=== PATIENT | female | born 1970 | race Caucasian/White ===

== ENCOUNTER 2017-12-16 20:19 | Emergency (ER) | payer BC ==
[2017-12-16 20:34] VITALS: RESP 18; TEMP 98.3
[2017-12-16 21:36] LABS: Basophils % (A) 0 %; Eosinophils # (A) 0.4 k/uL (0-0.7); Eosinophils % (A) 4 %; HCT 41.1 % (34.0-46.0); HGB 13.6 gm/dL (11.4-16.0); Lymphocytes # (A) 1.4 k/uL (1.0-4.8); Lymphocytes % (A) 14 %; MCH 28.9 pg (25.0-35.0); MCHC 33.2 g/dL (31.0-37.0); Mean Platelet Volume 7.6; Monocytes # (A) 0.6 k/uL (0-1.0); Monocytes % (A) 6 %; Neutrophils # (A) 7.5 k/uL (1.3-7.7); Neutrophils % (A) 75 %; Platelet Count 276 k/uL (150-450); RBC 4.72 m/uL (3.80-5.40); RDW 13.3 % (11.5-15.5)
[2017-12-16 21:42] LABS: INR 1.1 (<1.2); Prothrombin Time 10.4 sec (9.0-12.0)
[2017-12-16 21:45] LABS: Albumin 3.6 g/dL (3.5-5.0); Calcium 9.2 mg/dL (8.4-10.2); Potassium 4.3 mmol/L (3.5-5.1); Total Bilirubin 0.2 mg/dL (0.2-1.3); Total Protein 6.3 g/dL (6.3-8.2)
--- NOTE | 2017-12-16 22:19 | XR ---
EXAMINATION TYPE: XR elbow complete LT DATE OF EXAM: 12/16/2017 COMPARISON: NONE HISTORY: Elbow pain TECHNIQUE: 3 views FINDINGS: I see no fracture nor dislocation. Joint spaces are normal. There is no sign of elbow joint effusion. IMPRESSION: Negative left elbow exam.
[2017-12-16 22:26] VITALS: BP 164/99; PULSE 87
--- NOTE | 2017-12-16 23:08 | ED ---
General Adult HPI - General Chief complaint: Extremity Problem,Nontraumatic Stated complaint: bruising on arm Time Seen by Provider: 12/16/17 21:04 Source: patient, family, RN notes reviewed Mode of arrival: ambulatory Limitations: no limitations - History of Present Illness Initial comments: Chief complaint and history of present illness a 39-year-old female here with her sister. The patient reports that several days ago she noticed a little discomfort to her left elbow and a small bruise. Over the next several days it' s become significantly larger. Minimal discomfort with range of motion. Patient otherwise does not feel ill. - Related Data Home Medications Medication Instructions Recorded Confirmed Ascorbic Acid [Vitamin C] 500 mg PO DAILY@1200 03/16/15 06/11/15 Calcitriol 0.25 mcg PO DAILY 03/16/15 06/11/15 Calcium Carbonate [Tums] 500 mg PO DAILY@119903/16/15 06/11/15 Ferrous Sulfate [Feosol] 325 mg PO DAILY 03/16/15 06/11/15 Magnesium 200 mg PO DAILY@119903/16/15 06/11/15 SUMAtriptan SUCCINATE [Imitrex] 50 mg PO BID PRN 03/16/15 06/11/15 Influenza Vaccine (3Yr+) [Fluarix 60 mcg IM .ONCE 06/11/15 06/11/15 Vaccine [id number]] Levothyroxine Sodium [Synthroid] 175 mcg PO DAILY 06/11/15 06/11/15 Previous Rx's Medication Instructions Recorded Acetaminophen-Codeine 300-30mg 1 tab PO Q4H PRN #30 tablet 06/11/15 [Tylenol #3] Ibuprofen [Motrin] 600 mg PO Q6HR PRN #30 tab 06/11/15 Allergies Allergy/AdvReac Type Severity Reaction Status Date / Time erythromycin base Allergy Rash/Hives Verified 12/16/17 20:33 Review of Systems ROS Statement: Those systems with pertinent positive or pertinent negative responses have been documented in the HPI. Review of systems no other complaints of the discomfort to her left elbow with a large area of ecchymosis. All systems are reviewed. Past medical problem significant for thyroid and cervical cancer. Also history of migraines. She takes Excedrin on occasion but not to excess. Also history of anemia. Her surgeries include thyroidectomy for thyroid cancer and partial hysterectomy. Family history significant for colon cancer and thyroid cancer. The patient is getting her colonoscopies as directed. She complains of ALLERGIES to erythromycin. Nonsmoker nonalcoholic drinker no exposure to chemicals. ROS Other: All systems not noted in ROS Statement are negative. Past Medical History Past Medical History: Cancer, Thyroid Disorder Additional Past Medical History / Comment(s): hx. anemia, hx. thyroid cancer, hx. migraine headaches History of Any Multi-Drug Resistant Organisms: None Reported Past Surgical History: No Surgical Hx Reported Additional Past Surgical History / Comment(s): D & C, thyroidectomy w/3 of parathyroid glands removed, D & C in March Past Anesthesia/Blood Transfusion Reactions: No Reported Reaction Past Psychological History: No Psychological Hx Reported Smoking Status: Former smoker Past Alcohol Use History: Rare Past Drug Use History: None Reported - Past Family History Mother Family Medical History: No Reported History General Exam - General Exam Comments Initial Comments: General: The patient is awake and alert, in no distress, and does not appear acutely ill. Here because of ecchymosis around her left elbow. Vital signs shows temperature 98.3 pulse 89 respiratory rate 18 pulse ox 97% room air blood pressure 141/65 Neck: The neck is supple, Cardiovascular: There is a regular rate and rhythm. No murmur, rub or gallop is appreciated. Respiratory: Lungs are clear to auscultation, respirations are non-labored, breath sounds are equal. No wheezes, stridor, rales, or rhonchi. Gastrointestinal: No complaints of abdominal pain, no nausea no vomiting no diarrhea. Back: No back pain, full range of motion. Musculoskeletal: Upper or lower extremities normal except for ecchymosis surrounding the mildly tender left elbow. Patient can't remember specifically injuring it or she may have bumped lightly. She is concerned about the amount of ecchymosis that spreads that area. Neurological: No focal or lateralizing findings Skin: Ecchymotic area left elbow. No signs of infection Limitations: no limitations Course Vital Signs 12/16/17 12/16/17 20:30 22:25 Temperature 98.3 F Pulse Rate 89 87 Respiratory 18 18 Rate Blood Pressure 141/65 164/99 O2 Sat by Pulse 97 97 Oximetry Medical Decision Making - Medical Decision Making Medical decision making; is a 47-year-old female complaint of large amount of ecchymosis around her left elbow minimally tender. She thinks she may have bumped it several days ago. Labs show white count of 10 hemoglobin 13 hematocrit 41. INR 1.1. Platelets 276,000. Potassium 4.3 BUN 26 creatinine 1.0 with a GFR 67. Glucose 105. X-ray of the left elbow was done and reviewed by radiologist his findings; are no fracture dislocation. Joint spaces are normal. There is no sign of elbow joint effusion. Impression negative left elbow. As read by Dr. Miller Patient be advised this time to apply cool compresses but still sore. Otherwise warm compresses to help the blood absorbed. Follow-up with family physician return emergency room as needed suggest that she use Tylenol for discomfort. - Lab Data Result diagrams: 12/16/17 21:28 12/16/17 21:28 Lab Results 12/16/17 12/16/17 12/16/17 Range/Units 21:28 21:28 21:28 WBC 10.0 (3.8-10.6) k/uL RBC 4.72 (3.80-5.40) m/uL Hgb 13.6 (11.4-16.0) gm/dL Hct 41.1 (34.0-46.0) % MCV 87.0 (80.0-100.0) fL MCH 28.9 (25.0-35.0) pg MCHC 33.2 (31.0-37.0) g/dL RDW 13.3 (11.5-15.5) % Plt Count 276 (150-450) k/uL Neutrophils % 75 % Lymphocytes % 14 % Monocytes % 6 % Eosinophils % 4 % Basophils % 0 % Neutrophils # 7.5 (1.3-7.7) k/uL Lymphocytes # 1.4 (1.0-4.8) k/uL Monocytes # 0.6 (0-1.0) k/uL Eosinophils # 0.4 (0-0.7) k/uL Basophils # 0.0 (0-0.2) k/uL PT 10.4 (9.0-12.0) sec INR 1.1 (<1.2) Sodium 144 (137-145) mmol/L Potassium 4.3 (3.5-5.1) mmol/L Chloride 106 (98-107) mmol/L Carbon Dioxide 28 (22-30) mmol/L Anion Gap 10 mmol/L BUN 26 H (7-17) mg/dL Creatinine 1.00 (0.52-1.04) mg/dL Est GFR (CKD-EPI)AfAm 78 (>60 ml/min/1.73 sqM) Est GFR (CKD-EPI)NonAf 67 (>60 ml/min/1.73 sqM) Glucose 105 H (74-99) mg/dL Calcium 9.2 (8.4-10.2) mg/dL Total Bilirubin 0.2 (0.2-1.3) mg/dL AST 12 L (14-36) U/L ALT 19 (9-52) U/L Alkaline Phosphatase 61 (38-126) U/L Total Protein 6.3 (6.3-8.2) g/dL Albumin 3.6 (3.5-5.0) g/dL Disposition Clinical Impression: Contusion of left elbow, Traumatic ecchymosis of elbow Disposition: HOME SELF-CARE Condition: Stable Instructions: Ecchymosis (ED) Additional Instructions: Apply ice if painful heat if not painful. Continue with flexing and extending. Tylenol for pain discomfort follow-up family physician Referrals: Susana Chin MD [Primary Care Provider] - 1-2 days Time of Disposition: 23:08
== END 2017-12-16 23:36 | disposition home or self-care (01) ==
LOC: EC 20:19
DX: S50.02XA Contusion of left elbow, initial encounter (principal); E07.9 Disorder of thyroid, unspecified; D64.9 Anemia, unspecified; Z85.850 Personal history of malignant neoplasm of thyroid; Z87.891 Personal history of nicotine dependence; Z79.899 Other long term (current) drug therapy; Z88.1 Allergy status to other antibiotic agents; X58.XXXA Exposure to other specified factors, initial encounter
CPT/HCPCS: 36415; 80053; 85025; 85610; 99283

== ENCOUNTER 2018-07-18 17:28 | Inpatient (IN) | payer BC ==
[2018-07-18] MEDS ORDERED: ASPIRIN 81 MG PO STA (18:16)
[2018-07-18] MEDS ORDERED: NITROGLYCERIN OINT 1 INCH/GM PACKET TOPICAL STA (18:16)
--- NOTE | 2018-07-18 18:19 | ED ---
General Adult HPI - General Chief complaint: Chest Pain Stated complaint: chest pain Time Seen by Provider: 07/18/18 17:30 Source: patient, RN notes reviewed Mode of arrival: ambulatory Limitations: no limitations - History of Present Illness Initial comments: This is a 48-year-old female who presents emergency Department complaining of chest pain starting at 3:30. Patient states the pain radiates to the left arm and it started when she was exerting herself walking today. Patient states she sat down and rested it improved she got up and started walking again and it came back. Patient states the pain continues this time is a pressure sensation of left side of her chest. Patient denies any difficulty breathing. Patient denies any diaphoretic episodes. Patient denied any nausea. Patient denies abdominal pain patient denies any recent fever chills but does states she has had a nonproductive cough recently. Patient denies any alcohol or drug use. Patient denies any leg edema or calf tenderness. Patient denies any abdominal pain patient denies any vomiting or diarrhea. She denies being lightheaded or having any near syncopal episode. He - Related Data Home Medications Medication Instructions Recorded Confirmed Calcitriol 0.25 mcg PO BID 03/16/15 07/18/18 Ferrous Sulfate [Feosol] 325 mg PO DAILY 03/16/15 07/18/18 Magnesium 200 mg PO DAILY 03/16/15 07/18/18 Levothyroxine Sodium [Synthroid] 175 mcg PO DAILY 06/11/15 07/18/18 Multivitamins, Thera [Multivitamin 1 tab PO DAILY 07/18/18 07/18/18 (formulary)] Allergies Allergy/AdvReac Type Severity Reaction Status Date / Time erythromycin base Allergy Rash/Hives Verified 07/18/18 18:24 Review of Systems ROS Statement: Those systems with pertinent positive or pertinent negative responses have been documented in the HPI. ROS Other: All systems not noted in ROS Statement are negative. Past Medical History Past Medical History: Cancer, Thyroid Disorder Additional Past Medical History / Comment(s): hx. anemia, hx. thyroid cancer, hx. migraine headaches History of Any Multi-Drug Resistant Organisms: None Reported Past Surgical History: No Surgical Hx Reported Additional Past Surgical History / Comment(s): D & C, thyroidectomy w/3 of parathyroid glands removed, D & C in March Past Anesthesia/Blood Transfusion Reactions: No Reported Reaction Past Psychological History: No Psychological Hx Reported Smoking Status: Former smoker Past Alcohol Use History: Rare Past Drug Use History: None Reported - Past Family History Mother Family Medical History: No Reported History General Exam - General Exam Comments Initial Comments: GENERAL: Patient is well-developed and well-nourished. Patient is nontoxic and well- hydrated and is in mild distress. ENT: Neck is soft and supple. No significant lymphadenopathy is noted. Oropharynx is clear. Moist mucous membranes. Neck has full range of motion without eliciting any pain. EYES: The sclera were anicteric and conjunctiva were pink and moist. Extraocular movements were intact and pupils were equal round and reactive to light. Eyelids were unremarkable. PULMONARY: Unlabored respirations. Good breath sounds bilaterally. No audible rales rhonchi or wheezing was noted. CARDIOVASCULAR: There is a regular rate and rhythm without any murmurs gallops or rubs. ABDOMEN: Soft and nontender with normal bowel sounds. No palpable organomegaly was noted. There is no palpable pulsatile mass. SKIN: Skin is clear with no lesions or rashes and otherwise unremarkable. NEUROLOGIC: Patient is alert and oriented x3. Cranial nerves II through XII are grossly intact. Motor and sensory are also intact. Normal speech, volume and content. Symmetrical smile. MUSCULOSKELETAL: Normal extremities with adequate strength and full range of motion. No lower extremity swelling or edema. No calf tenderness. LYMPHATICS: No significant lymphadenopathy is noted PSYCHIATRIC: Normal psychiatric evaluation. Normal interpersonal interactions appears functionally intact in deals appropriately with others. No signs of depression. No signs of anxiety. Limitations: no limitations Course Vital Signs 07/18/18 07/18/18 07/18/18 17:35 18:30 19:00 Temperature 97.6 F Pulse Rate 82 89 98 Respiratory 18 20 15 Rate Blood Pressure 175/127 167/104 152/106 O2 Sat by Pulse 100 98 98 Oximetry 07/18/18 19:30 Temperature Pulse Rate 92 Respiratory 12 Rate Blood Pressure 168/120 O2 Sat by Pulse 98 Oximetry Medical Decision Making - Medical Decision Making EKG shows a normal sinus rhythm at 80 bpm NC interval 158 QRSs 82 QT interval 380 QTC is 459 per patient's EKG shows no ST segment elevation or depression or T wave abnormalities are noted. Chest x-ray shows no acute abnormality. Patient continues to have some chest pain so I did another EKG and gave the patient sublingual nitroglycerin. Repeat EKG showed a normal sinus rhythm at 89 bpm NC interval 164 QRS is 82 QT interval 370 QTC is 459. Patient's EKG shows no ST segment elevation or depression. I started the patient on heparin. I spoke with Dr. Jaramillo he agreed to admit the patient admitted the patient I also cardiology continued heparin and aspirin and Nitropaste on the floor. - Lab Data Result diagrams: 07/18/18 18:05 07/18/18 18:05 Lab Results 07/18/18 07/18/18 07/18/18 Range/Units 18:05 18:05 18:05 WBC 10.7 H (3.8-10.6) k/uL RBC 4.71 (3.80-5.40) m/uL Hgb 13.6 (11.4-16.0) gm/dL Hct 42.0 (34.0-46.0) % MCV 89.1 (80.0-100.0) fL MCH 28.8 (25.0-35.0) pg MCHC 32.3 (31.0-37.0) g/dL RDW 12.9 (11.5-15.5) % Plt Count 214 (150-450) k/uL Neutrophils % 85 % Lymphocytes % 7 % Monocytes % 5 % Eosinophils % 2 % Basophils % 0 % Neutrophils # 9.0 H (1.3-7.7) k/uL Lymphocytes # 0.7 L (1.0-4.8) k/uL Monocytes # 0.6 (0-1.0) k/uL Eosinophils # 0.2 (0-0.7) k/uL Basophils # 0.0 (0-0.2) k/uL PT (9.0-12.0) sec INR (<1.2) APTT (22.0-30.0) sec Sodium 137 (137-145) mmol/L Potassium 4.5 (3.5-5.1) mmol/L Chloride 103 (98-107) mmol/L Carbon Dioxide 24 (22-30) mmol/L Anion Gap 10 mmol/L BUN 18 H (7-17) mg/dL Creatinine 0.79 (0.52-1.04) mg/dL Est GFR (CKD-EPI)AfAm >90 (>60 ml/min/1.73 sqM) Est GFR (CKD-EPI)NonAf 89 (>60 ml/min/1.73 sqM) Glucose 109 H (74-99) mg/dL Calcium 8.8 (8.4-10.2) mg/dL Magnesium 2.0 (1.6-2.3) mg/dL Total Bilirubin 0.8 (0.2-1.3) mg/dL AST 46 H (14-36) U/L ALT 23 (9-52) U/L Alkaline Phosphatase 65 (38-126) U/L Total Creatine Kinase 90 (30-135) U/L CK-MB (CK-2) 1.9 (0.0-2.4) ng/mL CK-MB (CK-2) Rel Index 2.1 Troponin I 0.086 H* (0.000-0.034) ng/mL Total Protein 7.8 (6.3-8.2) g/dL Albumin 4.3 (3.5-5.0) g/dL 07/18/18 Range/Units 18:05 WBC (3.8-10.6) k/uL RBC (3.80-5.40) m/uL Hgb (11.4-16.0) gm/dL Hct (34.0-46.0) % MCV (80.0-100.0) fL MCH (25.0-35.0) pg MCHC (31.0-37.0) g/dL RDW (11.5-15.5) % Plt Count (150-450) k/uL Neutrophils % % Lymphocytes % % Monocytes % % Eosinophils % % Basophils % % Neutrophils # (1.3-7.7) k/uL Lymphocytes # (1.0-4.8) k/uL Monocytes # (0-1.0) k/uL Eosinophils # (0-0.7) k/uL Basophils # (0-0.2) k/uL PT 10.2 (9.0-12.0) sec INR 1.0 (<1.2) APTT 23.6 (22.0-30.0) sec Sodium (137-145) mmol/L Potassium (3.5-5.1) mmol/L Chloride (98-107) mmol/L Carbon Dioxide (22-30) mmol/L Anion Gap mmol/L BUN (7-17) mg/dL Creatinine (0.52-1.04) mg/dL Est GFR (CKD-EPI)AfAm (>60 ml/min/1.73 sqM) Est GFR (CKD-EPI)NonAf (>60 ml/min/1.73 sqM) Glucose (74-99) mg/dL Calcium (8.4-10.2) mg/dL Magnesium (1.6-2.3) mg/dL Total Bilirubin (0.2-1.3) mg/dL AST (14-36) U/L ALT (9-52) U/L Alkaline Phosphatase (38-126) U/L Total Creatine Kinase (30-135) U/L CK-MB (CK-2) (0.0-2.4) ng/mL CK-MB (CK-2) Rel Index Troponin I (0.000-0.034) ng/mL Total Protein (6.3-8.2) g/dL Albumin (3.5-5.0) g/dL Critical Care Time Critical Care Time: Yes Total Critical Care Time: 35 Disposition Clinical Impression: Unstable angina pectoris, Large hiatal hernia Disposition: ADMITTED IP TO THIS HOSP Referrals: Susana Chin MD [Primary Care Provider] - 1-2 days Time of Disposition: 20:43
--- NOTE | 2018-07-18 18:38 | XR ---
EXAMINATION TYPE: XR chest 2V DATE OF EXAM: 07/18/2018 COMPARISON: NONE HISTORY: Short of breath TECHNIQUE: Frontal and lateral views of the chest are obtained. FINDINGS: Heart and mediastinum are normal. Lungs are clear of infiltrate. There is a very large hia pedrito hernia. There are chest leads. Bony thorax is intact. IMPRESSION: Large hiatal hernia. No active cardiopulmonary disease.
[2018-07-18 18:39] LABS: Basophils % (A) 0 %; Eosinophils # (A) 0.2 k/uL (0-0.7); Eosinophils % (A) 2 %; HGB 13.6 gm/dL (11.4-16.0); Lymphocytes # (A) 0.7 k/uL (1.0-4.8); Lymphocytes % (A) 7 %; MCH 28.8 pg (25.0-35.0); MCHC 32.3 g/dL (31.0-37.0); MCV 89.1 fL (80.0-100.0); Mean Platelet Volume 7.6; Monocytes # (A) 0.6 k/uL (0-1.0); Monocytes % (A) 5 %; Neutrophils % (A) 85 %; Platelet Count 214 k/uL (150-450); RBC 4.71 m/uL (3.80-5.40); RDW 12.9 % (11.5-15.5); WBC 10.7 k/uL (3.8-10.6)
[2018-07-18 18:50] LABS: Anion Gap 10 mmol/L; Blood Urea Nitrogen 18 mg/dL (7-17); Calcium 8.8 mg/dL (8.4-10.2); Carbon Dioxide 24 mmol/L (22-30); Chloride 103 mmol/L (98-107); Glucose 109 mg/dL (74-99); Sodium 137 mmol/L (137-145); Total Bilirubin 0.8 mg/dL (0.2-1.3)
[2018-07-18 18:55] LABS: Partial Thromboplastin Time 23.6 sec (22.0-30.0); Prothrombin Time 10.2 sec (9.0-12.0)
[2018-07-18 19:01] LABS: ALT 23 U/L (9-52); AST 46 U/L (14-36); Albumin 4.3 g/dL (3.5-5.0); Alkaline Phosphatase 65 U/L (38-126); Potassium 4.5 mmol/L (3.5-5.1); Total Protein 7.8 g/dL (6.3-8.2)
[2018-07-18 19:05] LABS: Creatine Kinase MB 1.9 ng/mL (0.0-2.4)
[2018-07-18 19:27] LABS: Troponin I 0.086 ng/mL (0.000-0.034)
[2018-07-18] MEDS ORDERED: HEPARIN SODIUM,PORCINE 5,000 UNIT/ML 1 ML VIAL IV ONE (19:40)
[2018-07-18] MEDS ORDERED: NITROGLYCERIN SL TABS 0.4 MG TAB SUBLINGUAL STA (19:40)
[2018-07-18] MEDS ORDERED: HEPARIN SOD,PORK IN 0.45% NACL 25,000 UNIT in 0.45% NACL 1 500ML.BAG IV SCH (19:45)
[2018-07-18] MEDS ORDERED: MORPHINE SULFATE 2 MG/ML SYRINGE IVP STA (19:52)
[2018-07-18] MEDS ORDERED: NITROGLYCERIN SL TABS 0.4 MG TAB SUBLINGUAL PRN (20:43)
--- NOTE | 2018-07-18 21:01 | CT ---
EXAMINATION TYPE: CT ChestAbdPelvis w con DATE OF EXAM: 07/18/2018 COMPARISON: None HISTORY: Chest pain and shortness of breath. CT DLP: 1313 mGycm Automated exposure control for dose reduction was used. CONTRAST: CT scan of the chest, abdomen and pelvis is performed without Oral Contrast and with IV Contrast, pat ient injected with 100ml mL of Isovue 300. FINDINGS: There is a large posterior right-sided diaphragmatic hernia. This contains the entire stomach and is a hiatal hernia. Liver shows no focal defect. Bile ducts are not dilated. Gallbladder appears normal. Spleen appears normal. There is no pancreatic mass. There is no adrenal mass. Kidneys show satisfactory contrast opacification. There is no hydronephrosi s. There is 1 cm cortical cyst posterior left kidney. Ureters are not dilated. There is no retroperit navas adenopathy. Bladder distends smoothly. I see no intestinal wall thickening. There are no dilate d loops. There is no inguinal hernia. There is no free fluid in the pelvis. Appendix appears normal. The lungs are clear of infiltrate. Heart size is normal. There is no pericardial effusion. There is n o mediastinal adenopathy. There are no hilar masses. There is mild atelectasis adjacent to the hiatal hernia. The thoracic and lumbar vertebra appear intact. There is no compression fracture. Bony pelvi s is intact. IMPRESSION: Intrathoracic stomach on the right side of the chest. Mild atelectasis adjacent to the he rnia. No sign of acute abdomen and pelvis.
[2018-07-19] MEDS: NITROGLYCERIN OINT 1 INCH/GM PACKET TOPICAL SCH ×3 (01:01→11:43)
[2018-07-19 01:10] LABS: Creatine Kinase MB 39.1 ng/mL (0.0-2.4)
[2018-07-19 01:41] LABS: Troponin I 6.69 ng/mL (0.000-0.034)
[2018-07-19] MEDS ORDERED: SUMAtriptan SUCCINATE 50 MG TAB PO STA ×3 (03:12→23:34)
[2018-07-19 03:42] LABS: Cholesterol 206 mg/dL (<200); HDL Cholesterol 52 mg/dL (40-60); LDL Cholesterol,Calculated 117 mg/dL (0-99); Triglycerides 187 mg/dL (<150)
[2018-07-19 03:49] LABS: Magnesium 2.1 mg/dL (1.6-2.3); Potassium 4.1 mmol/L (3.5-5.1)
[2018-07-19] MEDS ORDERED: HEPARIN SODIUM,PORCINE 5,000 UNIT/ML 1 ML VIAL IV PRN (03:50)
[2018-07-19 04:54] LABS: Glucose,Whole Blood 117 mg/dL (75-99)
--- NOTE | 2018-07-19 04:57 | P.CRDCN ---
History of Present Illness Consult date: 07/19/18 History of present illness: This is a 48-year-old female with history of thyroid cancer and hypercholesterolemia, who was admitted to the hospital with chest pain. Apparently she was walking around 3:30 PM yesterday when she started experiencing midsternal chest discomfort. This was associated with mild discomfort in the left arm. No nausea vomiting or sweating. Patient stopped and rested with relief of pain. However, when she started walking, she started to have chest pain again. This pain did not resolve and finally patient came to the emergency room. The treatment in the emergency room on pain has resolved and remained stable since then. Her EKG did not reveal any acute changes. First troponin is within normal limits. However second troponin showed elevation up to 6 suggestive of non-STEMI. At the time of my examination patient is having headache but otherwise seems to be stable. Patient is advised to have cardiac catheterization for definitive diagnosis and further intervention. Patient was explained the risks and benefits of the procedure including the possibility of myocardial infarction and stroke Review of Systems REVIEW OF SYSTEMS: CONSTITUTIONAL:. Patient is doing well. No complaints of fever or chills EYES: Denies diplopia, blurring of vision EARS, NOSE, MOUTH, THROAT: Denies headaches, denies sore throat. CARDIOVASCULAR: As per HPI RESPIRATORY: Denies shortness of breath, denies cough. GASTROINTESTINAL: Denies change in appetite, denies abdominal pain, denies diarrhea GENITOURINARY: Denies hematuria, denies infections. MUSKULOSKELETAL: Denies pain, denies swelling. Denies any cramps or claudication INTEGUMENTARY: Denies rash, denies eczema. NEUROLOGICAL: Denies focal weakness, or visual disturbance. Denies any dizziness or syncope PSYCHIATRIC: Denies anxiety, denies depression. HEMATOLOGIC/LYMPHATIC: Denies any bleeding, denies enlarged lymph nodes. Past Medical History Past Medical History: Cancer, Thyroid Disorder Additional Past Medical History / Comment(s): hx. anemia, hx. thyroid cancer, hx. migraine headaches History of Any Multi-Drug Resistant Organisms: None Reported Past Surgical History: No Surgical Hx Reported Additional Past Surgical History / Comment(s): D & C, thyroidectomy w/3 of parathyroid glands removed, D & C in March Past Anesthesia/Blood Transfusion Reactions: No Reported Reaction Past Psychological History: No Psychological Hx Reported Smoking Status: Former smoker Past Alcohol Use History: Rare Additional Past Alcohol Use History / Comment(s): quit smoking 6 yrs. ago, only smoked on & off Past Drug Use History: None Reported - Past Family History Mother Family Medical History: No Reported History Medications and Allergies Home Medications Medication Instructions Recorded Confirmed Type Calcitriol 0.25 mcg PO BID 03/16/15 07/18/18 History Ferrous Sulfate [Feosol] 325 mg PO DAILY 03/16/15 07/18/18 History Magnesium 200 mg PO DAILY 03/16/15 07/18/18 History Levothyroxine Sodium [Synthroid] 175 mcg PO DAILY 06/11/15 07/18/18 History Multivitamins, Thera [Multivitamin 1 tab PO DAILY 07/18/18 07/18/18 History (formulary)] Allergies Allergy/AdvReac Type Severity Reaction Status Date / Time erythromycin base Allergy Rash/Hives Verified 07/18/18 18:24 Physical Exam Vitals: Vital Signs Temp Pulse Pulse Resp BP BP Pulse Ox 07/19/18 03:45 97.6 F 69 20 132/90 97 07/19/18 03:37 69 20 07/19/18 00:00 90 20 07/18/18 23:22 98.2 F 90 20 151/94 96 07/18/18 22:30 92 13 168/118 96 07/18/18 22:00 91 20 160/104 93 L 07/18/18 21:30 98 22 142/100 98 07/18/18 21:00 85 13 150/92 97 07/18/18 20:00 90 12 146/95 96 07/18/18 19:30 92 12 168/120 98 07/18/18 19:00 98 15 152/106 98 07/18/18 18:30 89 20 167/104 98 07/18/18 17:35 97.6 F 82 18 175/127 100 Intake and Output 07/18/18 07/18/18 07/19/18 14:59 22:59 06:59 Intake Total 128.333 Balance 128.333 Intake: Intake, IV Titration 128.333 Amount Heparin Sod,Pork in 0.45% 128.333 NaCl 25,000 unit In 0.45 % NaCl 1 500ml.bag @ 10. 755 UNITS/KG/HR 20 mls/hr IV .Q24H [facility] Rx#: [id number] Other: Weight 92.986 kg 92.986 kg GENERAL EXAM: Patient is alert and oriented and doesn't appear to be in any acute distress HEENT: Normocephalic. Normal reaction of pupils, equal size, normal range of extraocular motion. No erythema or exudates in the throat. NECK: No masses, no nuchal rigidity. CHEST: No chest wall deformity. LUNGS: Equal air entry with no crackles or wheeze. HEART: S1 and S2 normal with no audible mumurs or gallops. Regular rhythm, femorals equal on both sides.. ABDOMEN: No hepatosplenomegaly, normal bowel sounds, no guarding or rigidity. SKIN: No rashes CENTRAL NERVOUS SYSTEM: No focal deficits. EXTREMITIES: No cyanosis, clubbing or edema. Results 07/18/18 18:05 07/19/18 00:24 Cardiac Enzymes 07/18/18 07/18/18 07/19/18 Range/Units 18:05 18:05 00:24 AST 46 H (14-36) U/L CK-MB (CK-2) 1.9 39.1 H (0.0-2.4) ng/mL Troponin I 0.086 H* 6.690 H* (0.000-0.034) ng/mL Coagulation 07/18/18 07/19/18 Range/Units 18:05 03:08 PT 10.2 (9.0-12.0) sec APTT 23.6 34.3 H (22.0-30.0) sec Lipids 07/19/18 Range/Units 03:08 Triglycerides 187 H (<150) mg/dL Cholesterol 206 H (<200) mg/dL HDL Cholesterol 52 (40-60) mg/dL CBC 07/18/18 Range/Units 18:05 WBC 10.7 H (3.8-10.6) k/uL RBC 4.71 (3.80-5.40) m/uL Hgb 13.6 (11.4-16.0) gm/dL Hct 42.0 (34.0-46.0) % Plt Count 214 (150-450) k/uL Comprehensive Metabolic Panel 07/18/18 07/19/18 Range/Units 18:05 00:24 Sodium 137 (137-145) mmol/L Potassium 4.5 4.1 (3.5-5.1) mmol/L Chloride 103 (98-107) mmol/L Carbon Dioxide 24 (22-30) mmol/L BUN 18 H (7-17) mg/dL Creatinine 0.79 (0.52-1.04) mg/dL Glucose 109 H (74-99) mg/dL Calcium 8.8 (8.4-10.2) mg/dL AST 46 H (14-36) U/L ALT 23 (9-52) U/L Alkaline Phosphatase 65 (38-126) U/L Total Protein 7.8 (6.3-8.2) g/dL Albumin 4.3 (3.5-5.0) g/dL Current Medications Generic Name Dose Route Start Last Admin Trade Name Freq PRN Reason Stop Dose Admin Aspirin 325 mg 07/19/18 09:00 Aspirin PO DAILY [facility] Heparin Sodium (Porcine) 0 unit 07/19/18 03:50 07/19/18 03:58 Heparin IV 4,000 unit PER PROTOCOL PRN Administration Low PTT Protocol Heparin Sodium/Sodium Chloride 500 mls @ 20 mls/hr 07/18/18 19:45 07/19/18 03 :59 25,000 unit/ Sodium Chloride IV 13.7 units/kg/hr .Q24H [facility] 25.47 mls/hr Titration Protocol 10.755 UNITS/KG/HR Levothyroxine Sodium 100 mcg 07/19/18 06:30 Synthroid PO DAILY@0630 [facility] Levothyroxine Sodium 75 mcg 07/19/18 06:30 Synthroid PO DAILY@0630 [facility] Metoprolol Tartrate 50 mg 07/19/18 09:00 Lopressor PO BID [facility] Nitroglycerin 1 inch 07/19/18 00:00 07/19/18 01:01 Nitro-Bid Oint TOPICAL 1 inch Q6HR [facility] Administration Nitroglycerin 0.4 mg 07/18/18 20:43 07/19/18 01:14 Nitrostat SUBLINGUAL 0.4 mg Q5M PRN Administration Chest Pain Intake and Output 07/18/18 07/18/18 07/19/18 14:59 22:59 06:59 Intake Total 128.333 Balance 128.333 Intake: Intake, IV Titration 128.333 Amount Heparin Sod,Pork in 0.45% 128.333 NaCl 25,000 unit In 0.45 % NaCl 1 500ml.bag @ 10. 755 UNITS/KG/HR 20 mls/hr IV .Q24H [facility] Rx#: [id number] Other: Weight 92.986 kg 92.986 kg Patient Weight 07/19/18 06:59 Weight 92.986 kg 07/18/18 18:05 07/19/18 00:24 EKG Interpretations (text) Sinus rhythm Assessment and Plan (1) Non-STEMI (non-ST elevated myocardial infarction) Current Visit: Yes Status: Acute Code(s): I21.4 - NON-ST ELEVATION (NSTEMI) MYOCARDIAL INFARCTION SNOMED Code(s): 742091161 (2) History of thyroid cancer Current Visit: Yes Status: Acute Code(s): Z85.850 - PERSONAL HISTORY OF MALIGNANT NEOPLASM OF THYROID SNOMED Code(s): 795241958 (3) Hypercholesterolemia Current Visit: Yes Status: Acute Code(s): E78.00 - PURE HYPERCHOLESTEROLEMIA , UNSPECIFIED SNOMED Code(s): 66173073 Plan: We will continue with heparin, nitrates, beta blockers and lipid-lowering agents. We'll proceed with a cardiac catheterization for definite diagnosis. Patient will also have an echocardiogram.
[2018-07-19] MEDS: CLOPIDOGREL 75 MG TAB PO SCH (05:19)
[2018-07-19] MEDS: LEVOTHYROXINE 75 MCG TAB PO SCH (05:19)
[2018-07-19] MEDS: LEVOTHYROXINE 100 MCG TAB PO SCH (05:20)
[2018-07-19 08:28] LABS: Creatine Kinase MB 59.1 ng/mL (0.0-2.4)
--- NOTE | 2018-07-19 08:39 | ECHOF ---
Referral Reason:Chest pain, positive trops MEASUREMENTS -------- HEIGHT: 157.5 cm WEIGHT: 90.7 kg BP: 132/90 RVIDd: 2.6 cm (< 3.3) IVSd: 1.2 cm (0.6 - 1.1) LVIDd: 4.7 cm (3.9 - 5.3) LVPWd: 1.3 cm (0.6 - 1.1) IVSs: 1.5 cm LVIDs: 3.3 cm LVPWs: 1.8 cm LA Diam: 3.3 cm (2.7 - 3.8) Ao Diam: 2.7 cm (2.0 - 3.7) AV Cusp: 1.5 cm (1.5 - 2.6) LA Diam: 3.9 cm (2.7 - 3.8) MV EXCURSION: 18.395 mm (> 18.000) MV EF SLOPE: 76 mm/s (70 - 150) EPSS: 0.7 cm MV E Grayson: 0.63 m/s MV DecT: 231 ms MV A Grayson: 0.76 m/s MV E/A Ratio: 0.83 RAP: 5.00 mmHg RVSP: 30.18 mmHg FINDINGS -------- Sinus rhythm. This was a technically good study. The left ventricular size is normal. There is mild concentric left ventricular hypertrophy. Overa ll left ventricular systolic function is low-normal with, an EF between 50 - 55 %. The right ventricle is normal in size. The left atrial size is normal. The right atrial size is normal. The aortic valve is trileaflet, and appears structurally normal. No aortic stenosis or regurgitation. Mild mitral regurgitation is present. Mild tricuspid regurgitation present. There is no evidence of pulmonary hypertension. The right v entricular systolic pressure, as measured by Doppler, is 30.18mmHg. There is no pulmonic regurgitation present. The aortic root size is normal. There is no pericardial effusion. CONCLUSIONS -------- 1. The left ventricular size is normal. 2. There is mild concentric left ventricular hypertrophy. 3. Overall left ventricular systolic function is low-normal with, an EF between 50 - 55 %. 4. The right ventricle is normal in size. 5. The left atrial size is normal. 6. The right atrial size is normal. 7. The aortic valve is trileaflet, and appears structurally normal. No aortic stenosis or regurgitati on. 8. Mild mitral regurgitation is present. 9. Mild tricuspid regurgitation present. 10. There is no evidence of pulmonary hypertension. 11. The right ventricular systolic pressure, as measured by Doppler, is 30.18mmHg. 12. There is no pulmonic regurgitation present. 13. The aortic root size is normal. 14. There is no pericardial effusion. AVIATION SAFETY INSPECTOR: Merari Maravilla RDCS
[2018-07-19] MEDS ORDERED: METOPROLOL TARTRATE 50 MG TAB PO SCH (09:00)
[2018-07-19] MEDS ORDERED: ASPIRIN 325 MG TAB PO SCH (09:00)
[2018-07-19 10:14] LABS: Basophils % (A) 0 %; Eosinophils % (A) 0 %; HCT 41.2 % (34.0-46.0); HGB 13.2 gm/dL (11.4-16.0); Lymphocytes # (A) 1.3 k/uL (1.0-4.8); Lymphocytes % (A) 13 %; MCH 28.8 pg (25.0-35.0); MCHC 32.1 g/dL (31.0-37.0); MCV 89.6 fL (80.0-100.0); Mean Platelet Volume 6.6; Monocytes # (A) 0.5 k/uL (0-1.0); Monocytes % (A) 5 %; Neutrophils # (A) 8.3 k/uL (1.3-7.7); Neutrophils % (A) 80 %; Platelet Count 224 k/uL (150-450); RDW 13.1 % (11.5-15.5); WBC 10.4 k/uL (3.8-10.6)
[2018-07-19] MEDS ORDERED: ACETAMINOPHEN TAB 325 MG TAB PO PRN (10:32)
--- NOTE | 2018-07-19 10:38 | P.HPIM ---
History of Present Illness H&P Date: 07/19/18 Chief Complaint: chest pain This is a 48-year-old female patient of Dr. Chin resented to the emergency room with complaints of chest pain. Patient states she woke up at around 3:30 with chest pain that radiated to her left arm. Patient describes pain as a pressure. Patient has a known past medical history of thyroid cancer anemia and migraine headaches. Patient does state her father also had heart attack. Patient denies smoking. Chest x-ray completed showing a large hiatal hernia. No active cardiopulmonary disease. CT of abdomen and pelvis completed showing intrathoracic stomach on the right side of the chest. Mild atelectasis adjacent to the hernia no sign of acute abdomen and pelvis. Patient unaware of hernia. Patient states she has never had a hernia before. Dr. la has been consulted for hiatal hernia. EKG completed showing somewhat normal sinus rhythm with sinus arrhythmia. Possible left atrial enlargement. Initial troponin 0.086. Second troponin 6.690 and 3rd troponin 12.0. Patient started on heparin drip and cardiology services are consulted. At this time patient denies chest pain or shortness of breath. Patient is complaining of headache but does have history of migraine headaches. Patient denies nausea vomiting or diarrhea. Review of Systems Please refer to HPI otherwise unremarkable Past Medical History Past Medical History: Cancer, Thyroid Disorder Additional Past Medical History / Comment(s): hx. anemia, hx. thyroid cancer, hx. migraine headaches History of Any Multi-Drug Resistant Organisms: None Reported Past Surgical History: No Surgical Hx Reported Additional Past Surgical History / Comment(s): D & C, thyroidectomy w/3 of parathyroid glands removed, D & C in March Past Anesthesia/Blood Transfusion Reactions: No Reported Reaction Past Psychological History: No Psychological Hx Reported Smoking Status: Former smoker Past Alcohol Use History: Rare Additional Past Alcohol Use History / Comment(s): quit smoking 6 yrs. ago, only smoked on & off Past Drug Use History: None Reported - Past Family History Mother Family Medical History: No Reported History Medications and Allergies Home Medications Medication Instructions Recorded Confirmed Type Calcitriol 0.25 mcg PO BID 03/16/15 07/18/18 History Ferrous Sulfate [Feosol] 325 mg PO DAILY 03/16/15 07/18/18 History Magnesium 200 mg PO DAILY 03/16/15 07/18/18 History Levothyroxine Sodium [Synthroid] 175 mcg PO DAILY 06/11/15 07/18/18 History Multivitamins, Thera [Multivitamin 1 tab PO DAILY 07/18/18 07/18/18 History (formulary)] Allergies Allergy/AdvReac Type Severity Reaction Status Date / Time erythromycin base Allergy Rash/Hives Verified 07/18/18 18:24 Physical Exam Vitals: Vital Signs Temp Pulse Pulse Resp BP BP Pulse Ox 07/19/18 08:05 97.1 F L 75 18 143/89 97 07/19/18 03:45 97.6 F 69 20 132/90 97 07/19/18 03:37 69 20 07/19/18 00:00 90 20 07/18/18 23:22 98.2 F 90 20 151/94 96 07/18/18 22:30 92 13 168/118 96 07/18/18 22:00 91 20 160/104 93 L 07/18/18 21:30 98 22 142/100 98 07/18/18 21:00 85 13 150/92 97 07/18/18 20:00 90 12 146/95 96 07/18/18 19:30 92 12 168/120 98 07/18/18 19:00 98 15 152/106 98 07/18/18 18:30 89 20 167/104 98 07/18/18 17:35 97.6 F 82 18 175/127 100 Intake and Output 07/18/18 07/19/18 07/19/18 22:59 06:59 14:59 Intake Total 188.333 Balance 188.333 Intake: Intake, IV Titration 128.333 Amount Heparin Sod,Pork in 0.45% 128.333 NaCl 25,000 unit In 0.45 % NaCl 1 500ml.bag @ 10. 755 UNITS/KG/HR 20 mls/hr IV .Q24H [facility] Rx#: [id number] Oral 60 Other: # Voids 1 Weight 92.986 kg 94.4 kg Head normocephalic Neck supple Lungs clear to auscultation bilaterally no wheezing or crackles Heart regular rate and rhythm S1-S2, no rub or gallop Abdomen is soft nontender nondistended positive bowel sounds no hepatosplenomegaly Extremities no edema Neuro alert and orientated to 3 Results CBC & Chem 7: 07/18/18 18:05 07/19/18 00:24 Labs: Abnormal Lab Results - Last 24 Hours (Table) 07/18/18 07/18/18 07/18/18 Range/Units 18:05 18:05 18:05 WBC 10.7 H (3.8-10.6) k/uL Neutrophils # 9.0 H (1.3-7.7) k/uL Lymphocytes # 0.7 L (1.0-4.8) k/uL APTT (22.0-30.0) sec BUN 18 H (7-17) mg/dL Glucose 109 H (74-99) mg/dL POC Glucose (mg/dL) (75-99) mg/dL AST 46 H (14-36) U/L Total Creatine Kinase (30-135) U/L CK-MB (CK-2) (0.0-2.4) ng/mL Troponin I 0.086 H* (0.000-0.034) ng/mL Triglycerides (<150) mg/dL Cholesterol (<200) mg/dL LDL Cholesterol, Calc (0-99) mg/dL 07/19/18 07/19/18 07/19/18 Range/Units 00:24 03:08 03:08 WBC (3.8-10.6) k/uL Neutrophils # (1.3-7.7) k/uL Lymphocytes # (1.0-4.8) k/uL APTT 34.3 H (22.0-30.0) sec BUN (7-17) mg/dL Glucose (74-99) mg/dL POC Glucose (mg/dL) (75-99) mg/dL AST (14-36) U/L Total Creatine Kinase 388 H (30-135) U/L CK-MB (CK-2) 39.1 H (0.0-2.4) ng/mL Troponin I 6.690 H* (0.000-0.034) ng/mL Triglycerides 187 H (<150) mg/dL Cholesterol 206 H (<200) mg/dL LDL Cholesterol, Calc 117 H (0-99) mg/dL 07/19/18 07/19/18 07/19/18 Range/Units 04:44 07:07 09:23 WBC (3.8-10.6) k/uL Neutrophils # (1.3-7.7) k/uL Lymphocytes # (1.0-4.8) k/uL APTT 42.7 H (22.0-30.0) sec BUN (7-17) mg/dL Glucose (74-99) mg/dL POC Glucose (mg/dL) 117 H (75-99) mg/dL AST (14-36) U/L Total Creatine Kinase 536 H (30-135) U/L CK-MB (CK-2) 59.1 H (0.0-2.4) ng/mL Troponin I 12.000 H* (0.000-0.034) ng/mL Triglycerides (<150) mg/dL Cholesterol (<200) mg/dL LDL Cholesterol, Calc (0-99) mg/dL Thrombosis Risk Factor Assmnt - Choose All That Apply Any of the Below Risk Factors Present?: Yes Each Factor Represents 1 point: Age 41-60 years Other Risk Factors: No Other congenital or acquired thrombophilia - If yes, enter type in comment: No Thrombosis Risk Factor Assessment Total Risk Factor Score: 1 Thrombosis Risk Factor Assessment Level: Low Risk Assessment and Plan Assessment: 1. Chest pain due to non-STEMI. Chest x-ray completed showing large hiatal hernia. No active cardiopulmonary disease. troponins 0.06, 6.690 and 12.00. Patient started on heparin drip. 2-D echo completed showing an EF of 50-55%. Per cardiology services would proceed with cardiac catheterization today. 2. Hiatal hernia. Patient does not report any knowledge of hiatal hernia. CT of abdomen and pelvis completed showing intrathoracic stomach on the right side of the chest. Mild atelectasis adjacent hernia no sign of acute abdomen and pelvis. Dr. la has been consulted per surgical services 3. History of migraines. 4. History of thyroid cancer 5. History of hyperlipidemia Time with Patient: Greater than 30 (Greater than 60% of the total time spent in counseling and coordination of care. I performed an examination of the patient and discussed their management with the Nurse Practitioner. I have reviewed the Nurse Practitioner's notes and agree with the documented findings and plan of care)
[2018-07-19] MEDS ORDERED: MIDAZOLAM 2 MG/2 ML VIAL ONE (11:09)
[2018-07-19] MEDS ORDERED: HEPARIN SODIUM 1,000 UN/ML (10ML VL) ONE (11:09)
[2018-07-19] MEDS ORDERED: fentaNYL (PF) 50 MCG/ML 2 ML AMP ONE (11:09)
[2018-07-19] MEDS ORDERED: LIDOCAINE 1% INJ 10MG/ML (20 ML MDV) ONE ×2 (11:10→11:43)
[2018-07-19] MEDS ORDERED: VERAPAMIL 2.5 MG/ML 2 ML AMP ONE (11:10)
[2018-07-19 11:12] LABS: ALT 31 U/L (9-52); AST 85 U/L (14-36); Albumin 3.7 g/dL (3.5-5.0); Alkaline Phosphatase 69 U/L (38-126); Anion Gap 9 mmol/L; Blood Urea Nitrogen 14 mg/dL (7-17); Calcium 8.2 mg/dL (8.4-10.2); Carbon Dioxide 26 mmol/L (22-30); Chloride 106 mmol/L (98-107); Glucose 102 mg/dL (74-99); Potassium 4.1 mmol/L (3.5-5.1); Sodium 141 mmol/L (137-145); Total Bilirubin 0.5 mg/dL (0.2-1.3); Total Protein 6.7 g/dL (6.3-8.2)
[2018-07-19] MEDS ORDERED: IV FLUID CONTINUATION 1,000 ML IV ONE (11:32)
[2018-07-19] MEDS ORDERED: MIDAZOLAM 2 MG/2 ML VIAL IVP ONE (11:32)
[2018-07-19] MEDS ORDERED: fentaNYL (PF) 50 MCG/ML 2 ML AMP IVP ONE (11:32)
[2018-07-19] MEDS ORDERED: LIDOCAINE 1% (PF) 10MG/ML VIAL SQ ONE ×2 (11:35→11:49)
[2018-07-19] MEDS ORDERED: IOPAMIDOL-370 50ML BTL INJ ONE (12:01)
[2018-07-19] MEDS ORDERED: METOPROLOL TARTRATE 5 MG/5 ML VIAL IVP ONE ×2 (12:02→12:05)
--- NOTE | 2018-07-19 12:24 | P.CARDCATH ---
Date of Procedure: 07/19/18 Preoperative Diagnosis: Non-STEMI Postoperative Diagnosis: Critical lesion involving a small caliber diagonal branch Procedure(s) Performed: Left heart catheterization with the left and photography Description of Procedure: HISTORY: This is a 48-year-old female with history of hypercholesterolemia who was admitted to the hospital with prolonged chest pain and positive troponins suggestive of nonsustained ST elevation [place]. EKGs did not reveal any acute changes. She is advised to have a cardiac catheterization for definitive diagnosis. CONSENT:I have discussed the risks, benefits and alternative therapies for the above-mentioned procedure and for both sedation/analgesia as well as necessary blood product administration, if indicated, as they pertain to this patient. The patient has indicated understanding and acceptance of the risks and procedures discussed. PROCEDURE: Patient was brought to the lab in a fasting state. Patient was given some IV sedation. Attempts were made to do catheterization from the right radial approach. After advancing sheaths, there was no blood return and the procedure was abandoned .The right groin is infiltrated with lidocaine and right femoral artery was entered using Seldinger technique. A 6-Tuvaluan catheter was left in place and selective coronary arteriography and left ventriculography was performed. Patient tolerated the procedure well. Femoral angiogram was performed and Angio-Seal was applied for hemostasis. No immediate complications were noted and patient was transferred to [facility] in a stable condition Conscious Sedation: Versed 1mg Fentanyl 50 g Duration 30minutes HEMODYNAMICS: The aortic pressure is about 170/80. Left ankle end-diastolic pressure is about 12-16. There was no gradient across the aortic valve SELECTIVE C waORONARY ARTERIOGRAPHY: Left main coronary artery: This is a normal in length and free of occlusive disease THE LEFT ANTERIOR DESCENDING CORONARY ARTETY: This is a good caliber vessel giving rise to 26 diagonal branches. The first diagonal branches. Small to moderate in caliber but long. It has 90% stenosis in midportion. THE LEFT CIRCUMFLEX CORONARY ARTERY: This is a good caliber vessel giving rise to good-sized PLV branch and any loose segment. The circumflex and is coronary artery and branches are free of occlusive disease. THE RIGHT CORONARY ARTERY: This is a good caliber vessel and dominant. This is free of any occlusive disease LEFT VENTRICULOGRAPHY: This revealed normal-sized cardiac silhouette with fair systolic function. There is hypokinesis of the mid anterior mendoza with an ejection fraction about 45% FINAL IMPRESSION: critical lesion involving the small diagonal branch. Hypokinesis of the mid anterior wall with ejection fraction of 45% PLAN: Dr. BEE Yan's evaluating the patient for possible stent placement of the diagonal PROGNOSIS: Fair
[2018-07-19] MEDS: NITROGLYCERIN 1000MCG/10ML SYRINGE INTRACORON ONE ×2 (12:41→12:59)
[2018-07-19] MEDS ORDERED: BIVALIRUDIN BOLUS 250 MG/50 ML IV ONE (12:42)
[2018-07-19] MEDS ORDERED: BIVALIRUDIN 250 MG in SODIUM CHLORIDE 0.9% 50 ML IV ONE (12:43)
[2018-07-19] MEDS ORDERED: IOPAMIDOL-370 125ML BTL INJ ONE (12:47)
[2018-07-19] MEDS ORDERED: CLOPIDOGREL 75 MG TAB ONE (13:14)
[2018-07-19] MEDS ORDERED: IOPAMIDOL-370 100ML BTL INJ ONE (13:15)
[2018-07-19] MEDS ORDERED: CLOPIDOGREL 75 MG TAB PO ONE (13:16)
[2018-07-19] MEDS ORDERED: ATROPINE SULFATE 0.1 MG/ML 10ML SYRINGE IV PRN (13:28)
[2018-07-19] MEDS ORDERED: ZOLPIDEM 5 MG TAB PO PRN (13:28)
[2018-07-19] MEDS ORDERED: MAG HYDROX/AL HYDROX/SIMETH 30 ML CUP PO PRN (13:28)
[2018-07-19] MEDS ORDERED: RX INFO: IV CONTRAST WAS GIVEN 1 EACH MISC MISCELLANE PRN (13:28)
[2018-07-19] MEDS ORDERED: NITROGLYCERIN SL TABS 0.4 MG TAB SUBLINGUAL ONE ×2 (13:30→13:33)
[2018-07-19] MEDS ORDERED: amLODIPine 5 MG TAB ONE (13:31)
[2018-07-19] MEDS ORDERED: amLODIPine 5 MG TAB PO ONE (13:33)
--- NOTE | 2018-07-19 13:50 | PTCA ---
PERCUTANEOUSTRANS CORORONARY ANGIOGRAPHY DATE OF SERVICE: 07/19/2018. PROCEDURE: PTCA and stenting of major diagonal branch of LAD with a drug-eluting stent. PERFORMED BY: Dr. Bhavesh Yan. Moderate conscious sedation time was 31 minutes. Patient was administered Versed, Benadryl and oxygen saturation. Hemodynamics and EKG were monitored closely. CLINICAL INFORMATION: Mrs. Joellen Max is an 48-year-old lady admitted to the hospital with non ST elevation OR, underwent cardiac cath by Dr. Brito. Study revealed a 90% lesion involving a major diagonal branch, which was a large distribution, small caliber vessel. There was focal wall motion abnormality of the LV gram. I considered medical therapy, but after due discussion with the patient because of ongoing symptoms of chest tightness and pressure, I recommended intervention after and proceeded to perform this in the same setting. PROCEDURE NOTE: The existing 6-Vincentian introducer in the femoral artery was used to perform the procedure. The left 3.5 Tara guide catheter was used to cannulate the left coronary artery. I used a Whisper wire to cross the lesion. I performed a predilatation with a 2.0 caliber 12 mm Trek balloon. There was a small dissection noted in the diagonal branch just before the tight lesion. This vessel bifurcated into 2 branches and the lesion was located just before the bifurcation. The superior branch flow had decreased after the dissection. I then advanced a 12 mm long [place] 2.0 caliber stent and deployed this at the dissection, sealing the dissection with remarkably improvement in angiographic appearance and flow with good opacification of both branches. I then advanced another 8 mm 2.0 on extent and deployed this distal to the previous stent right at the bifurcation. Patient had mild chest discomfort. No EKG changes. Excellent angiographic result was achieved without complication. Sheath was taken out and Angio-Seal device used to secure hemostasis and she was sent to the room in a stable condition. I expect that she will be discharged in the next 24-48 hours. MMODL / IJN: [id number] /
[2018-07-19 14:46] VITALS: BMI 38.0
[2018-07-19] MEDS: SODIUM CHLORIDE 0.9% 1,000 ML IV SCH (15:57)
--- NOTE | 2018-07-19 21:13 | P.GSCN ---
History of Present Illness Consult date: 07/19/18 Reason for Consult: Hiatal hernia History of present illness: Patient admitted with left-sided chest pain. This was increased with exertion. Pain was sharp. This was nonradiating. Patient had elevated troponins. She was taken for cardiac catheterization and underwent stent placement. She was told she had a mild SC. As part of her workup a CAT scan was performed. CAT scan revealed a large hiatal hernia with intrathoracic stomach also containing a portion of transverse colon. No inflammatory changes or evidence of obstruction was seen. Denies nausea or vomiting. Review of Systems The patient denies any acute changes in his vision or hearing, no dysphagia or odynophagia, no shortness of breath, no dysuria or hematuria, no headache, no runny nose, no rectal bleeding or melena, no unexplained weight loss Past Medical History Past Medical History: Cancer, Thyroid Disorder Additional Past Medical History / Comment(s): hx. anemia, hx. thyroid cancer, hx. migraine headaches History of Any Multi-Drug Resistant Organisms: None Reported Past Surgical History: No Surgical Hx Reported Additional Past Surgical History / Comment(s): D & C, thyroidectomy w/3 of parathyroid glands removed, D & C in March Past Anesthesia/Blood Transfusion Reactions: No Reported Reaction Past Psychological History: No Psychological Hx Reported Smoking Status: Former smoker Past Alcohol Use History: Rare Additional Past Alcohol Use History / Comment(s): quit smoking 6 yrs. ago, only smoked on & off Past Drug Use History: None Reported - Past Family History Mother Family Medical History: No Reported History Medications and Allergies Home Medications Medication Instructions Recorded Confirmed Type Calcitriol 0.25 mcg PO BID 03/16/15 07/18/18 History Ferrous Sulfate [Feosol] 325 mg PO DAILY 03/16/15 07/18/18 History Magnesium 200 mg PO DAILY 03/16/15 07/18/18 History Levothyroxine Sodium [Synthroid] 175 mcg PO DAILY 06/11/15 07/18/18 History Multivitamins, Thera [Multivitamin 1 tab PO DAILY 07/18/18 07/18/18 History (formulary)] Allergies Allergy/AdvReac Type Severity Reaction Status Date / Time erythromycin base Allergy Rash/Hives Verified 07/18/18 18:24 Surgical - Exam Vital Signs Temp Pulse Resp BP Pulse Ox 97.6 F 82 18 175/127 100 07/18/18 17:35 07/18/18 17:35 07/18/18 17:35 07/18/18 17:35 07/18/18 17:35 Physical exam: General: Well-developed, well-nourished HEENT: Normocephalic, sclerae nonicteric Abdomen: Nontender, nondistended Extremities: No edema Neuro: Alert and oriented Results - Labs 07/19/18 09:23 07/19/18 09:23 Abnormal Lab Results - Last 24 Hours (Table) 07/19/18 07/19/18 07/19/18 Range/Units 00:24 03:08 03:08 Neutrophils # (1.3-7.7) k/uL APTT 34.3 H (22.0-30.0) sec Glucose (74-99) mg/dL POC Glucose (mg/dL) (75-99) mg/dL Calcium (8.4-10.2) mg/dL AST (14-36) U/L Total Creatine Kinase 388 H (30-135) U/L CK-MB (CK-2) 39.1 H (0.0-2.4) ng/mL Troponin I 6.690 H* (0.000-0.034) ng/mL Triglycerides 187 H (<150) mg/dL Cholesterol 206 H (<200) mg/dL LDL Cholesterol, Calc 117 H (0-99) mg/dL 07/19/18 07/19/18 07/19/18 Range/Units 04:44 07:07 09:23 Neutrophils # (1.3-7.7) k/uL APTT 42.7 H (22.0-30.0) sec Glucose (74-99) mg/dL POC Glucose (mg/dL) 117 H (75-99) mg/dL Calcium (8.4-10.2) mg/dL AST (14-36) U/L Total Creatine Kinase 536 H (30-135) U/L CK-MB (CK-2) 59.1 H (0.0-2.4) ng/mL Troponin I 12.000 H* (0.000-0.034) ng/mL Triglycerides (<150) mg/dL Cholesterol (<200) mg/dL LDL Cholesterol, Calc (0-99) mg/dL 07/19/18 07/19/18 Range/Units 09:23 09:23 Neutrophils # 8.3 H (1.3-7.7) k/uL APTT (22.0-30.0) sec Glucose 102 H (74-99) mg/dL POC Glucose (mg/dL) (75-99) mg/dL Calcium 8.2 L (8.4-10.2) mg/dL AST 85 H (14-36) U/L Total Creatine Kinase (30-135) U/L CK-MB (CK-2) (0.0-2.4) ng/mL Troponin I (0.000-0.034) ng/mL Triglycerides (<150) mg/dL Cholesterol (<200) mg/dL LDL Cholesterol, Calc (0-99) mg/dL Diabetes panel 07/19/18 07/19/18 07/19/18 Range/Units 00:24 03:08 09:23 Sodium 141 (137-145) mmol/L Potassium 4.1 4.1 (3.5-5.1) mmol/L Chloride 106 (98-107) mmol/L Carbon Dioxide 26 (22-30) mmol/L BUN 14 (7-17) mg/dL Creatinine 0.75 (0.52-1.04) mg/dL Glucose 102 H (74-99) mg/dL Calcium 8.2 L (8.4-10.2) mg/dL AST 85 H (14-36) U/L ALT 31 (9-52) U/L Alkaline Phosphatase 69 (38-126) U/L Total Protein 6.7 (6.3-8.2) g/dL Albumin 3.7 (3.5-5.0) g/dL Triglycerides 187 H (<150) mg/dL HDL Cholesterol 52 (40-60) mg/dL Calcium panel 07/19/18 Range/Units 09:23 Calcium 8.2 L (8.4-10.2) mg/dL Albumin 3.7 (3.5-5.0) g/dL Pituitary panel 07/19/18 07/19/18 Range/Units 00:24 09:23 Sodium 141 (137-145) mmol/L Potassium 4.1 4.1 (3.5-5.1) mmol/L Chloride 106 (98-107) mmol/L Carbon Dioxide 26 (22-30) mmol/L BUN 14 (7-17) mg/dL Creatinine 0.75 (0.52-1.04) mg/dL Glucose 102 H (74-99) mg/dL Calcium 8.2 L (8.4-10.2) mg/dL Adrenal panel 07/19/18 07/19/18 Range/Units 00:24 09:23 Sodium 141 (137-145) mmol/L Potassium 4.1 4.1 (3.5-5.1) mmol/L Chloride 106 (98-107) mmol/L Carbon Dioxide 26 (22-30) mmol/L BUN 14 (7-17) mg/dL Creatinine 0.75 (0.52-1.04) mg/dL Glucose 102 H (74-99) mg/dL Calcium 8.2 L (8.4-10.2) mg/dL Total Bilirubin 0.5 (0.2-1.3) mg/dL AST 85 H (14-36) U/L ALT 31 (9-52) U/L Alkaline Phosphatase 69 (38-126) U/L Total Protein 6.7 (6.3-8.2) g/dL Albumin 3.7 (3.5-5.0) g/dL Assessment and Plan (1) Large hiatal hernia Narrative/Plan: Hiatal hernia findings discussed with the patient in detail. Patient will require surgical repair in the future. Will have patient follow up in the office following discharge. We'll sign off. Please contact if needed. Current Visit: Yes Status: Acute Code(s): K44.9 - DIAPHRAGMATIC HERNIA WITHOUT OBSTRUCTION OR GANGRENE SNOMED Code(s): 33841205
[2018-07-19] MEDS: ATORVASTATIN 80 MG TAB PO SCH (21:21)
[2018-07-20] MEDS: SODIUM CHLORIDE 0.9% 1,000 ML IV SCH (03:30)
[2018-07-20] MEDS: LEVOTHYROXINE 75 MCG TAB PO SCH (06:31)
[2018-07-20] MEDS: LEVOTHYROXINE 100 MCG TAB PO SCH (06:31)
[2018-07-20] MEDS: PANTOPRAZOLE 40 MG TABLET PO SCH (06:32)
[2018-07-20 06:48] LABS: Basophils % (A) 0 %; Eosinophils # (A) 0.2 k/uL (0-0.7); Eosinophils % (A) 2 %; HCT 41.9 % (34.0-46.0); HGB 13.7 gm/dL (11.4-16.0); Lymphocytes % (A) 12 %; MCH 29.1 pg (25.0-35.0); MCHC 32.6 g/dL (31.0-37.0); MCV 89.2 fL (80.0-100.0); Mean Platelet Volume 6.7; Monocytes # (A) 0.6 k/uL (0-1.0); Monocytes % (A) 7 %; Neutrophils # (A) 6.4 k/uL (1.3-7.7); Neutrophils % (A) 77 %; Platelet Count 207 k/uL (150-450); WBC 8.3 k/uL (3.8-10.6)
[2018-07-20 06:59] LABS: Anion Gap 9 mmol/L; Blood Urea Nitrogen 11 mg/dL (7-17); Calcium 7.6 mg/dL (8.4-10.2); Carbon Dioxide 22 mmol/L (22-30); Chloride 106 mmol/L (98-107); Glucose 101 mg/dL (74-99); Sodium 137 mmol/L (137-145)
[2018-07-20] MEDS: MAGNESIUM OXIDE 400 MG TAB PO SCH (08:27)
[2018-07-20] MEDS: CLOPIDOGREL 75 MG TAB PO SCH (08:27)
[2018-07-20] MEDS: amLODIPine 5 MG TAB PO SCH (08:27)
[2018-07-20] MEDS: LISINOPRIL 5 MG TAB PO SCH (08:27)
[2018-07-20] MEDS: ASPIRIN 81 MG PO SCH (08:27)
[2018-07-20] MEDS: METOPROLOL TARTRATE 25 MG TAB PO SCH (08:27)
[2018-07-20] MEDS: MULTIVITAMINS, THERA 1 EACH TAB PO SCH (11:18)
--- NOTE | 2018-07-20 11:54 | P.PN ---
Subjective Progress Note Date: 07/20/18 This is a 48-year-old female patient of Dr. Chin resented to the emergency room with complaints of chest pain. Patient states she woke up at around 3:30 with chest pain that radiated to her left arm. Patient describes pain as a pressure. Patient has a known past medical history of thyroid cancer anemia and migraine headaches. Patient does state her father also had heart attack. Patient denies smoking. Chest x-ray completed showing a large hiatal hernia. No active cardiopulmonary disease. CT of abdomen and pelvis completed showing intrathoracic stomach on the right side of the chest. Mild atelectasis adjacent to the hernia no sign of acute abdomen and pelvis. Patient unaware of hernia. Patient states she has never had a hernia before. Dr. la has been consulted for hiatal hernia. EKG completed showing somewhat normal sinus rhythm with sinus arrhythmia. Possible left atrial enlargement. Initial troponin 0.086. Second troponin 6.690 and 3rd troponin 12.0. Patient started on heparin drip and cardiology services are consulted. At this time patient denies chest pain or shortness of breath. Patient is complaining of headache but does have history of migraine headaches. Patient denies nausea vomiting or diarrhea. On 07/20/2018 patient was seen and examined on the third telemetry floor she is alert and oriented 3 in no apparent distress no new episodes of chest pain, no shortness of breath, no fever or chills no cough no dizziness no headache no nausea or vomiting no abdominal pain no burning with urination no frequency or urgency and no hematuria Objective - Vital Signs Vital signs: Vital Signs Temp 98.4 F 07/20/18 08:30 Pulse 75 07/20/18 11:15 Resp 16 07/20/18 11:15 BP 130/84 07/20/18 11:15 Pulse Ox 97 07/20/18 11:15 Intake & Output 07/19/18 07/20/18 07/20/18 18:59 06:59 18:59 Intake Total 630 400 600 Output Total 500 Balance 130 400 600 Weight 94.4 kg 92.8 kg Intake: IV 270 Intake, IV Titration 400 600 Amount Sodium Chloride 0.9% 1, 400 600 000 ml @ 75 mls/hr IV . [id number] [facility] Rx#:[id number] Oral 360 Output: Urine 500 Other: # Voids 2 1 - Exam Head normocephalic and atraumatic Neck supple no JVD no goiter Lungs clear to auscultation bilaterally no wheezing or crackles Heart regular rate and rhythm S1-S2, no rub or gallop Abdomen is soft nontender nondistended positive bowel sounds no hepatosplenomegaly Extremities no edema no cyanosis or clubbing Neuro alert and orientated to 3 no gross focal deficit - Labs CBC & Chem 7: 07/20/18 05:51 07/20/18 05:51 Labs: Abnormal Lab Results - Last 24 Hours (Table) 07/20/18 Range/Units 05:51 Glucose 101 H (74-99) mg/dL Calcium 7.6 L (8.4-10.2) mg/dL Assessment and Plan Plan: 1. Chest pain due to non-STEMI. Chest x-ray completed showing large hiatal hernia. No active cardiopulmonary disease. troponins 0.06, 6.690 and 12.00. Patient started on heparin drip. 2-D echo completed showing an EF of 50-55%. Patient had cardiac catheterization with angioplasty and stent placement to a diagonal branch yesterday, she is doing well case discussed with cardiology plan for discharge tomorrow if stable 2. Hiatal hernia. Patient does not report any knowledge of hiatal hernia. CT of abdomen and pelvis completed showing intrathoracic stomach on the right side of the chest. Mild atelectasis adjacent hernia no sign of acute abdomen and pelvis. Dr. la has been consulted per surgical services 3. History of migraines. 4. History of thyroid cancer 5. History of hyperlipidemia Advised to increase ambulation, plan for discharge tomorrow if no new episodes of chest pain
--- NOTE | 2018-07-20 15:24 | P.PN ---
Subjective Progress Note Date: 07/20/18 Principal diagnosis: NSTEMI This a pleasant 48-year-old female with history of hypercholesterolemia. She was admitted to the hospital with prolonged chest pain and positive troponin suggestive of non-ST elevation myocardial infarction. She subsequently underwent cardiac catheterization which showed normal left main which is free of occlusive disease, with the first diagonal branch with a 90% stenosis in the more midportion, circumflex artery free of occlusive disease and the RCA free of occlusive disease. She subsequently underwent stent placement by Dr. BEE Yan to the diagonal branch. She's been started on amlodipine 5 mg daily, aspirin 81 mg daily, Lipitor 80 mg by mouth daily, Plavix 75 mg daily, lisinopril 5 mg daily, and metoprolol tartrate 25 mg daily. Upon examination she is resting comfortably in bed. She's feeling well. She said no further complaints of chest discomfort. Stent up and leaning without difficulties. She denies currently shortness of breath palpitations or dizziness. Objective - Vital Signs Vital signs: Vital Signs Temp 98.4 F 07/20/18 08:30 Pulse 75 07/20/18 11:15 Resp 16 07/20/18 11:15 BP 130/84 07/20/18 11:15 Pulse Ox 97 07/20/18 11:15 Intake & Output 07/19/18 07/20/18 07/20/18 18:59 06:59 18:59 Intake Total 630 400 960 Output Total 500 Balance 130 400 960 Weight 94.4 kg 92.8 kg Intake: IV 270 Intake, IV Titration 400 600 Amount Sodium Chloride 0.9% 1, 400 600 000 ml @ 75 mls/hr IV . [id number] [facility] Rx#:[id number] Oral 360 360 Output: Urine 500 Other: # Voids 2 1 - Exam PHYSICAL EXAMINATION: HEENT: Head is atraumatic, normocephalic. Pupils equal, round. Neck is supple. There is no elevated jugular venous pressure. HEART EXAMINATION: Heart sounds regular, S1 and S2 normal. No murmur or gallop heard. CHEST EXAMINATION: Lungs are clear to auscultation and precussion. No chest wall tenderness is noted on palpation or with deep breathing. ABDOMEN: Soft, nontender. Bowel sounds are heard. No organomegaly noted. EXTREMITIES: 2+ peripheral pulses with no evidence of peripheral edema and no calf tenderness noted. Right radial puncture site without ecchymosis or hematoma. Right femoral puncture site is soft, no hematoma, no ecchymosis, no bruit.. NEUROLOGIC patient is awake, alert and oriented x3. . - Labs CBC & Chem 7: 07/20/18 05:51 07/20/18 05:51 Labs: Abnormal Lab Results - Last 24 Hours (Table) 07/20/18 Range/Units 05:51 Glucose 101 H (74-99) mg/dL Calcium 7.6 L (8.4-10.2) mg/dL Assessment and Plan Assessment: #1 non-ST elevation [place], status post stenting of the diagonal branch #2 hypercholesterolemia #3 hypertension #4 large hiatal hernia Plan: From cardiology perspective, medications reviewed and we will continue the same. Patient was instructed to increase ambulation. We'll continue to follow the patient for further recommendations according. We anticipate discharge tomorrow morning. MATERIAL HANDLER 2ND SHIFT note has been reviewed, I agree with a documented findings and plan of care. Patient was seen and examined.
[2018-07-20] MEDS ORDERED: SUMAtriptan SUCCINATE 25 MG TAB PO STA (17:22)
[2018-07-20] MEDS ORDERED: SUMAtriptan SUCCINATE 25 MG TAB PO ONE (19:30)
[2018-07-20] MEDS: ATORVASTATIN 80 MG TAB PO SCH (20:21)
[2018-07-21 06:12] LABS: Basophils % (A) 1 %; Eosinophils # (A) 0.3 k/uL (0-0.7); Eosinophils % (A) 4 %; HCT 41.4 % (34.0-46.0); HGB 13.4 gm/dL (11.4-16.0); Lymphocytes # (A) 1.1 k/uL (1.0-4.8); Lymphocytes % (A) 14 %; MCH 29.1 pg (25.0-35.0); MCHC 32.4 g/dL (31.0-37.0); MCV 89.7 fL (80.0-100.0); Mean Platelet Volume 6.8; Monocytes # (A) 0.5 k/uL (0-1.0); Monocytes % (A) 7 %; Neutrophils # (A) 5.7 k/uL (1.3-7.7); Neutrophils % (A) 73 %; Platelet Count 215 k/uL (150-450); RBC 4.62 m/uL (3.80-5.40); RDW 13.1 % (11.5-15.5); WBC 7.8 k/uL (3.8-10.6)
[2018-07-21] MEDS: LEVOTHYROXINE 75 MCG TAB PO SCH (06:15)
[2018-07-21] MEDS: PANTOPRAZOLE 40 MG TABLET PO SCH (06:15)
[2018-07-21] MEDS: LEVOTHYROXINE 100 MCG TAB PO SCH (06:15)
[2018-07-21 06:22] LABS: Albumin 3.6 g/dL (3.5-5.0); Calcium 7.8 mg/dL (8.4-10.2); Potassium 4.2 mmol/L (3.5-5.1); Total Bilirubin 0.5 mg/dL (0.2-1.3); Total Protein 6.5 g/dL (6.3-8.2)
[2018-07-21] MEDS: MAGNESIUM OXIDE 400 MG TAB PO SCH (08:01)
[2018-07-21] MEDS: METOPROLOL TARTRATE 25 MG TAB PO SCH (08:01)
[2018-07-21] MEDS: ASPIRIN 81 MG PO SCH (08:01)
[2018-07-21] MEDS: LISINOPRIL 5 MG TAB PO SCH (08:01)
[2018-07-21] MEDS: amLODIPine 5 MG TAB PO SCH (08:01)
[2018-07-21] MEDS: CLOPIDOGREL 75 MG TAB PO SCH (08:01)
[2018-07-21 08:05] VITALS: TEMP 96.6
[2018-07-21 11:10] VITALS: BP 109/68; PULSE 71; RESP 18
[2018-07-21] MEDS: MULTIVITAMINS, THERA 1 EACH TAB PO SCH (11:10)
--- NOTE | 2018-07-21 11:17 | P.DS ---
Providers Date of admission: 07/18/18 20:43 Expected date of discharge: 07/21/18 Attending physician: Giselle Jaramillo Consults: 07/18/18 20:43 Consult Physician Urgent Consulting Provider: Bradford Hussein Consult Reason/Comments: Unstable angina Do you want consulting provider notified?: Yes 07/19/18 09:35 Consult Physician Routine Consulting Provider: Martin Fam Consult Reason/Comments: hital hernia Do you want consulting provider notified?: Yes 07/19/18 13:28 Consult Physician Routine Consulting Provider: Bradford Hussein Consult Reason/Comments: Post Interventional patient Do you want consulting provider notified?: Already Contacted Primary care physician: Susana Chin Hospital Course: Discharge summary 1. Chest pain due to non-STEMI. Chest x-ray completed showing large hiatal hernia. No active cardiopulmonary disease. troponins 0.06, 6.690 and 12.00. Patient started on heparin drip. 2-D echo completed showing an EF of 50-55%. Patient had cardiac catheterization with angioplasty and stent placement to a diagonal branch yesterday, she is doing well case discussed with cardiology plan for discharge tomorrow if stable 2. Hiatal hernia. Patient does not report any knowledge of hiatal hernia. CT of abdomen and pelvis completed showing intrathoracic stomach on the right side of the chest. Mild atelectasis adjacent hernia no sign of acute abdomen and pelvis. Per surgical services patient will require surgical repair in the future. Patient to follow-up outpatient 3. History of migraines. 4. History of thyroid cancer 5. History of hyperlipidemia Hospital course This is a 48-year-old female patient of Dr. Chin resented to the emergency room with complaints of chest pain. Patient states she woke up at around 3:30 with chest pain that radiated to her left arm. Patient describes pain as a pressure. Patient has a known past medical history of thyroid cancer anemia and migraine headaches. Patient does state her father also had heart attack. Patient denies smoking. Chest x-ray completed showing a large hiatal hernia. No active cardiopulmonary disease. CT of abdomen and pelvis completed showing intrathoracic stomach on the right side of the chest. Mild atelectasis adjacent to the hernia no sign of acute abdomen and pelvis. Patient unaware of hernia. Patient states she has never had a hernia before. Dr. la has been consulted for hiatal hernia. EKG completed showing somewhat normal sinus rhythm with sinus arrhythmia. Possible left atrial enlargement. Initial troponin 0.086. Second troponin 6.690 and 3rd troponin 12.0. Patient started on heparin drip and cardiology services are consulted. At this time patient denies chest pain or shortness of breath. Patient is complaining of headache but does have history of migraine headaches. Patient denies nausea vomiting or diarrhea. On 07/20/2018 patient was seen and examined on the third telemetry floor she is alert and oriented 3 in no apparent distress no new episodes of chest pain, no shortness of breath, no fever or chills no cough no dizziness no headache no nausea or vomiting no abdominal pain no burning with urination no frequency or urgency and no hematuria On 07/21/2018. Patient is alert and oriented 3. Patient is very eager to go home. Patient denies chest pain or shortness breath. Patient denies nausea vomiting or diarrhea. Patient denies any urinary burning or frequency. Patient educated on importance of taking on new cardiac medication patient to follow-up outpatient with Dr. la regards to you hernia. I performed an examination of the patient and discussed their management with the Nurse Practitioner. I have reviewed the Nurse Practitioner's notes and agree with the documented findings and plan of care Patient Condition at Discharge: Stable Plan - Discharge Summary Discharge Rx Participant: No New Discharge Prescriptions: Continue Ferrous Sulfate [Iron (65 MG Elemental)] 325 mg PO DAILY Magnesium 200 mg PO DAILY Calcitriol 0.25 mcg PO BID Levothyroxine Sodium [Synthroid] 175 mcg PO DAILY Multivitamins, Thera [Multivitamin (formulary)] 1 tab PO DAILY SUMAtriptan SUCCINATE [Imitrex] 25 mg PO BID PRN PRN Reason: Migraine Headache Discharge Medication List Calcitriol 0.25 mcg PO BID 03/16/15 [History] Ferrous Sulfate [Iron (65 MG Elemental)] 325 mg PO DAILY 03/16/15 [History] Magnesium 200 mg PO DAILY 03/16/15 [History] Levothyroxine Sodium [Synthroid] 175 mcg PO DAILY 06/11/15 [History] Multivitamins, Thera [Multivitamin (formulary)] 1 tab PO DAILY 07/18/18 [History ] SUMAtriptan SUCCINATE [Imitrex] 25 mg PO BID PRN 07/20/18 [History] Follow up Appointment(s)/Referral(s): Martin Fam MD [Medical Doctor] - 4 Weeks Susana Chin MD [Primary Care Provider] - 1-2 days Ashlyn Brito MD [STAFF PHYSICIAN] - 1 Week Patient Instructions/Handouts: Metoprolol (By mouth), Lisinopril (By mouth), Aspirin (By mouth), Amlodipine (By mouth), Atorvastatin (By mouth), Clopidogrel (By mouth) Activity/Diet/Wound Care/Special Instructions: Activity as tolerated Diet cardiac Patient to follow-up outpatient with Dr. la for further evaluation of hernia. Patient followed closely with cardiology services PCP. Cardiac meds per cardiology prior to discharge Discharge Disposition: HOME SELF-CARE
--- NOTE | 2018-07-21 11:26 | P.PN ---
Subjective Progress Note Date: 07/21/18 Principal diagnosis: NSTEMI This a pleasant 48-year-old female with history of hypercholesterolemia. She was admitted to the hospital with prolonged chest pain and positive troponin suggestive of non-ST elevation myocardial infarction. She subsequently underwent cardiac catheterization which showed normal left main which is free of occlusive disease, with the first diagonal branch with a 90% stenosis in the more midportion, circumflex artery free of occlusive disease and the RCA free of occlusive disease. She subsequently underwent stent placement by Dr. BEE Yan to the diagonal branch. She's been started on amlodipine 5 mg daily, aspirin 81 mg daily, Lipitor 80 mg by mouth daily, Plavix 75 mg daily, lisinopril 5 mg daily, and metoprolol tartrate 25 mg daily. Upon examination she is resting comfortably in bed. She's feeling well. She said no further complaints of chest discomfort. She has been up ambulating without difficulties. She denies currently shortness of breath palpitations or dizziness. Objective - Vital Signs Vital signs: Vital Signs Temp 96.6 F L 07/21/18 08:00 Pulse 71 07/21/18 11:09 Resp 18 07/21/18 11:09 BP 109/68 07/21/18 11:09 Pulse Ox 97 07/21/18 11:09 Intake & Output 07/20/18 07/21/18 07/21/18 18:59 06:59 18:59 Intake Total 1200 250 240 Output Total 1 Balance 1200 249 240 Weight 93.7 kg Intake: Intake, IV Titration 600 Amount Sodium Chloride 0.9% 1, 600 000 ml @ 75 mls/hr IV . [id number] Rx#:[id number] Oral 600 250 240 Output: Urine 1 Other: # Voids 2 3 3 - Exam PHYSICAL EXAMINATION: HEENT: Head is atraumatic, normocephalic. Pupils equal, round. Neck is supple. There is no elevated jugular venous pressure. HEART EXAMINATION: Heart sounds regular, S1 and S2 normal. No murmur or gallop heard. CHEST EXAMINATION: Lungs are clear to auscultation and precussion. No chest wall tenderness is noted on palpation or with deep breathing. ABDOMEN: Soft, nontender. Bowel sounds are heard. No organomegaly noted. EXTREMITIES: 2+ peripheral pulses with no evidence of peripheral edema and no calf tenderness noted. Right radial puncture site without ecchymosis or hematoma. Right femoral puncture site is soft, no hematoma, no ecchymosis, no bruit.. NEUROLOGIC patient is awake, alert and oriented x3. . - Labs CBC & Chem 7: 07/21/18 05:31 07/21/18 05:31 Labs: Abnormal Lab Results - Last 24 Hours (Table) 07/21/18 Range/Units 05:31 BUN 21 H (7-17) mg/dL Glucose 100 H (74-99) mg/dL Calcium 7.8 L (8.4-10.2) mg/dL Assessment and Plan Assessment: #1 non-ST elevation [place], status post stenting of the diagonal branch #2 hypercholesterolemia #3 hypertension #4 large hiatal hernia Plan: From cardiology perspective, medications reviewed and we will continue the same. Patient will be discharged home today and follow-up with Dr. Brito in the office. FILER HELPER note has been reviewed, I agree with a documented findings and plan of care. Patient was seen and examined.
== END 2018-07-21 12:50 | disposition home or self-care (01) | DRG 247 ==
LOC: EC 17:28 → 3SCARD 20:43
PROVIDERS: ADMIT Internal Medicine; ATTEND Internal Medicine
PROC: B2111ZZ Fluoroscopy of Multiple Coronary Arteries using Low Osmolar Contrast (ICD-10-PCS; 2018-07-19)
PROC: B2151ZZ Fluoroscopy of Left Heart using Low Osmolar Contrast (ICD-10-PCS; 2018-07-19)
PROC: 027034Z Dilation of Coronary Artery, One Artery with Drug-eluting Intraluminal Device, Percutaneous Approach (ICD-10-PCS; principal; 2018-07-19 11:19)
PROC: 4A023N7 Measurement of Cardiac Sampling and Pressure, Left Heart, Percutaneous Approach (ICD-10-PCS; 2018-07-19 11:19)
DX: I21.4 Non-ST elevation (NSTEMI) myocardial infarction (principal); I25.110 Atherosclerotic heart disease of native coronary artery with unstable angina pectoris; K44.9 Diaphragmatic hernia without obstruction or gangrene; E07.9 Disorder of thyroid, unspecified; E78.00 Pure hypercholesterolemia, unspecified; E78.5 Hyperlipidemia, unspecified; I10 Essential (primary) hypertension; G43.909 Migraine, unspecified, not intractable, without status migrainosus; Z88.1 Allergy status to other antibiotic agents; Z87.891 Personal history of nicotine dependence; Z79.890 Hormone replacement therapy; Z79.899 Other long term (current) drug therapy; Z85.850 Personal history of malignant neoplasm of thyroid; Z82.49 Family history of ischemic heart disease and other diseases of the circulatory system; Z98.890 Other specified postprocedural states
CPT/HCPCS: 36415; 71046; 71260; 74177; 80048; 80053; 80061; 82550; 82553; 83735; 84132; 84484; 85025; 85610; 85730; 93005; 93306; 93458; 96365; 96375; 96376; 99291

== ENCOUNTER 2019-03-17 22:49 | Emergency (ER) | payer BC ==
[2019-03-17 23:15] VITALS: RESP 18; TEMP 97.5
[2019-03-18] MEDS ORDERED: ONDANSETRON 4 MG/2 ML VIAL IVP STA (00:31)
[2019-03-18] MEDS ORDERED: KETOROLAC 30 MG/ML 1 ML VIAL IVP STA (00:31)
[2019-03-18] MEDS ORDERED: SODIUM CHLORIDE 0.9% 1,000 ML IV STA (00:31)
[2019-03-18] MEDS ORDERED: diphenhydrAMINE 50 MG/ML 1 ML VIAL IVP STA (00:31)
--- NOTE | 2019-03-18 00:34 | ED ---
General Adult HPI - General Chief complaint: Headache Stated complaint: Migraine Time Seen by Provider: 03/18/19 00:24 Source: patient Mode of arrival: ambulatory Limitations: no limitations - History of Present Illness Initial comments: Dictation was produced using [employer] dictation software. please excuse any grammatical, word or spelling errors. Chief Complaint: 48-year-old female past medical history of thyroid disease, migraine headaches. She presents today with headache. History of Present Illness: 48-year-old female she presents today with headache. Patient has history of migraines. Patient states she does have an outpatient doctor this monitoring her migraines. Patient used to take Imitrex. Patient states that she has been having regular sleep due to slightly increased personal stress. Patient states the pain is localized behind her right eye. She states that her symptoms started yesterday. They abated since briefly return when she tried to go to bed today. Patient states this is typical pattern for her migraine. Patient denies any neuro deficits. Denies any vision changes. Patient was seen in the emergency department in the past for migraine headaches and reports that she had significant relief with treatment with headache cocktail. The ROS documented in this emergency department record has been reviewed and confirmed by me. Those systems with pertinent positive or negative responses have been documented in the HPI. All other systems are other negative and/or noncontributory. PHYSICAL EXAM: General Impression: Alert and oriented x3, not in acute distress HEENT: Normocephalic atraumatic, extra-ocular movements intact, pupils equal and reactive to light bilaterally, mucous membranes moist. Cardiovascular: Heart regular rate and rhythm, S1&S2 audible, no murmurs, rubs or gallops Chest: Lungs clear to auscultation bilaterally, no rhonchi, no wheeze, no rales Abdomen: Bowel sounds present, abdomen soft, non-tender, non-distended, no organomegaly Musculoskeletal: Pulses present and equal in all extremities, no peripheral edema Motor: no focal deficits noted Neurological: CN II-XII grossly intact, no focal motor or sensory deficits noted Skin: Intact with no visualized rashes Psych: Normal affect and mood ED course: 48 yo female presents with headache. She has a history of migraines reports that her headache is typical of her usual migraine symptoms. Examination is benign. Are within acceptable limits. Patient treated with headache cocktail. Patient is reevaluated after administration of headache cocktail with dramatic improvement of symptoms. Patient told to follow-up with PCP for outpatient management of migraine headaches and migraine prophylaxis. Patient was sent of agreeable to plan. Patient clear for discharge. - Related Data Home Medications Medication Instructions Recorded Confirmed Calcitriol 0.25 mcg PO BID 03/16/15 07/18/18 Ferrous Sulfate [Iron (65 MG 325 mg PO DAILY 03/16/15 07/18/18 Elemental)] Magnesium 200 mg PO DAILY 03/16/15 07/18/18 Levothyroxine Sodium [Synthroid] 175 mcg PO DAILY 06/11/15 07/18/18 Multivitamins, Thera [Multivitamin 1 tab PO DAILY 07/18/18 07/18/18 (formulary)] SUMAtriptan SUCCINATE [Imitrex] 25 mg PO BID PRN 07/20/18 07/20/18 Previous Rx's Medication Instructions Recorded Aspirin 81 mg PO DAILY chew 07/21/18 Atorvastatin [Lipitor] 80 mg PO HS #90 tab 07/21/18 Clopidogrel [Plavix] 75 mg PO DAILY #90 tab 07/21/18 Lisinopril [Zestril] 5 mg PO DAILY #90 tab 07/21/18 Metoprolol Tartrate [Lopressor] 25 mg PO DAILY #90 tab 07/21/18 Nitroglycerin Sl Tabs [Nitrostat] 0.4 mg SUBLINGUAL Q5M PRN #25 tab 07/21/18 amLODIPine [Norvasc] 5 mg PO DAILY #90 tab 07/21/18 Allergies Allergy/AdvReac Type Severity Reaction Status Date / Time erythromycin base Allergy Rash/Hives Verified 07/18/18 18:24 Review of Systems ROS Statement: Those systems with pertinent positive or pertinent negative responses have been documented in the HPI. ROS Other: All systems not noted in ROS Statement are negative. Past Medical History Past Medical History: Cancer, Thyroid Disorder Additional Past Medical History / Comment(s): hx. anemia, hx. thyroid cancer, hx. migraine headaches History of Any Multi-Drug Resistant Organisms: None Reported Past Surgical History: No Surgical Hx Reported Additional Past Surgical History / Comment(s): D & C, thyroidectomy w/3 of parathyroid glands removed Past Anesthesia/Blood Transfusion Reactions: No Reported Reaction Past Psychological History: No Psychological Hx Reported Smoking Status: Former smoker Past Alcohol Use History: Rare Past Drug Use History: None Reported - Past Family History Mother Family Medical History: No Reported History General Exam Limitations: no limitations Course Vital Signs 03/17/19 23:11 Temperature 97.5 F L Pulse Rate 83 Respiratory 18 Rate Blood Pressure 156/103 O2 Sat by Pulse 98 Oximetry Disposition Clinical Impression: Migraine Disposition: HOME SELF-CARE Condition: Good Instructions (If sedation given, give patient instructions): Acute Headache (ED) Is patient prescribed a controlled substance at d/c from ED?: No Referrals: Susana Chin MD [Primary Care Provider] - 1-2 days Time of Disposition: 01:40
[2019-03-18 02:03] VITALS: BP 122/72; PULSE 75
== END 2019-03-18 02:02 | disposition home or self-care (01) ==
LOC: EC 22:49
DX: G43.909 Migraine, unspecified, not intractable, without status migrainosus (principal); E07.9 Disorder of thyroid, unspecified; D64.9 Anemia, unspecified; Z85.850 Personal history of malignant neoplasm of thyroid; Z87.891 Personal history of nicotine dependence; Z90.89 Acquired absence of other organs; Z79.890 Hormone replacement therapy; Z79.899 Other long term (current) drug therapy; Z88.1 Allergy status to other antibiotic agents
CPT/HCPCS: 99283; 96374; 96375 ×2; 96361; J1200; J2405; J1885

== ENCOUNTER → 2019-05-08 | Outpatient (CLI) | payer BC ==
--- NOTE | 2019-05-08 10:44 | MM ---
Reason for exam: screening (asymptomatic). Last mammogram was performed 13 years and 7 months ago. History: Patient history of other cancer. Family history of breast cancer in paternal aunt at age 50. Physical Findings: A clinical breast exam by your physician is recommended on an annual basis and results should be correlated with mammographic findings. MG 3D Screening Mammo W/Cad Bilateral CC and MLO view(s) were taken. No prior studies available for comparison. The breast tissue is heterogeneously dense. This may lower the sensitivity of mammography. No suspicious abnormality. ASSESSMENT: Negative, BI-RAD 1 RECOMMENDATION: Routine screening mammogram of both breasts in 1 year.
== END | disposition home or self-care (01) ==
LOC: RADMAMWWP 07:17
PROVIDERS: ATTEND Family Medicine
DX: Z12.31 Encounter for screening mammogram for malignant neoplasm of breast (principal)
CPT/HCPCS: 77063; 77067

== ENCOUNTER → 2019-10-14 | Day surgery (SDC) | payer BC ==
[2019-10-10 11:17] VITALS: BMI 42.0
[~2019-10-14] MED LIST: LACTATED RINGERS 1,000 ML IV ONE; LIDOCAINE 1% 20 ML VIAL (10MG/ML) FOR IV START INTRADERMA ONE; PROPOFOL 10 MG/ML 20 ML VIAL IV ONE
[2019-10-14 08:51] VITALS: TEMP 96.8
--- NOTE | 2019-10-14 09:28 | P.PCN ---
Date of Procedure: 10/14/19 Description of Procedure: BRIEF HISTORY: Patient is a 49-year-old female presenting for outpatient colonoscopy for screening for malignant neoplasm colon. She reports prior endoscopic evaluation with EGD, colonoscopy and video capsule endoscopy for evaluation of anemia with no source of anemia found at that time. Denies any family history of colon cancer, change in bowel habits or blood per rectum. PROCEDURE PERFORMED: Colonoscopy with polypectomy. PREOPERATIVE DIAGNOSIS: Screening for malignant neoplasm of the colon, remote history of colonoscopy for evaluation of anemia. ESTIMATED BLOOD LOSS: Minimal. IV sedation per Anesthesia. PROCEDURE: After informed consent was obtained, the patient, was brought into the endoscopy unit. IV sedation was administered by Anesthesia under continuous monitoring. Digital rectal examination was normal. Initially the Olympus CF-190 flexible video colonoscope was then inserted in the rectum, gradually advanced into the cecum without any difficulty. Careful examination was performed as the scope was gradually being withdrawn. Ileocecal valve and the appendiceal orifice were visualized and appeared normal. Prep was excellent. Mucosa of the cecum, ascending colon, transverse colon, descending colon, sigmoid colon, and rectum appeared normal. A few scattered small diverticula noted in the sigmoid colon. Diminutive 1 mm ascending colon polyp removed with cold forcep polypectomy. Retroflexion was performed in the rectum and no lesions were seen. The patient tolerated the procedure well. IMPRESSION: Diminutive ascending colon polyp removed with cold forceps. Mild sigmoid diverticulosis. RECOMMENDATIONS: Findings of this examination were discussed with the patient and her sister. Okay to resume diet. Okay to resume medications. A with pathology from polypectomy. Would recommend repeat colonoscopy in 5 years pending pathology from polypectomy (if hyperplastic polyp can be extended to 10 years).
[2019-10-14 09:39] VITALS: BP 125/81; PULSE 85; RESP 17
== END ==
LOC: ORWHC2ENDO 08:21
PROVIDERS: ATTEND Internal Medicine
DX: Z12.11 Encounter for screening for malignant neoplasm of colon (principal); K63.5 Polyp of colon; K57.30 Diverticulosis of large intestine without perforation or abscess without bleeding; I10 Essential (primary) hypertension; I25.2 Old myocardial infarction; I25.10 Atherosclerotic heart disease of native coronary artery without angina pectoris; G43.909 Migraine, unspecified, not intractable, without status migrainosus; E66.9 Obesity, unspecified; E07.9 Disorder of thyroid, unspecified; Z88.1 Allergy status to other antibiotic agents; Z90.710 Acquired absence of both cervix and uterus; Z68.41 Body mass index [BMI] 40.0-44.9, adult; Z79.82 Long term (current) use of aspirin; Z79.899 Other long term (current) drug therapy; Z79.890 Hormone replacement therapy; Z95.5 Presence of coronary angioplasty implant and graft; Z87.891 Personal history of nicotine dependence
CPT/HCPCS: 88305; 45380; J2704

== ENCOUNTER → 2020-07-30 | Outpatient (CLI) | payer BC ==
--- NOTE | 2020-08-02 10:38 | MM ---
Reason for exam: screening (asymptomatic). Last mammogram was performed 1 year and 3 months ago. History: Patient history of other cancer. Family history of breast cancer in paternal aunt at age 50. Physical Findings: A clinical breast exam by your physician is recommended on an annual basis and results should be correlated with mammographic findings. MG 3D Screening Mammo W/Cad Bilateral CC and MLO view(s) were taken. Prior study comparison: May 08, 2019, bilateral MG 3d screening mammo w/cad. October 05, 2005, bilateral screening mammogram w/CAD. The breast tissue is heterogeneously dense. This may lower the sensitivity of mammography. There is no discrete abnormality. No significant changes when compared with prior studies. ASSESSMENT: Negative, BI-RAD 1 RECOMMENDATION: Routine screening mammogram of both breasts in 1 year.
== END | disposition home or self-care (01) ==
LOC: RADMAMWWP 07:13
PROVIDERS: ATTEND Family Medicine
DX: Z12.31 Encounter for screening mammogram for malignant neoplasm of breast (principal)
CPT/HCPCS: 77063; 77067

== ENCOUNTER → 2021-07-18 | Outpatient (CLI) | payer BC ==
--- NOTE | 2021-07-18 14:00 | MM ---
Reason for exam: screening (asymptomatic). Last mammogram was performed 1 year ago. History: Patient history of other cancer. Family history of breast cancer in paternal aunt at age 50. Took hormonal contraceptives for 5 years. Physical Findings: A clinical breast exam by your physician is recommended on an annual basis and results should be correlated with mammographic findings. MG 3D Screening Mammo W/Cad Bilateral CC and MLO view(s) were taken. Prior study comparison: July 30, 2020, bilateral MG 3d screening mammo w/cad. May 08, 2019, bilateral MG 3d screening mammo w/cad. The breast tissue is heterogeneously dense. This may lower the sensitivity of mammography. There is no discrete abnormality. ASSESSMENT: Negative, BI-RAD 1 RECOMMENDATION: Routine screening mammogram of both breasts in 1 year.
== END | disposition home or self-care (01) ==
LOC: RADMAMWWP 07:30
PROVIDERS: ATTEND Family Medicine
DX: Z12.31 Encounter for screening mammogram for malignant neoplasm of breast (principal); Z80.3 Family history of malignant neoplasm of breast
CPT/HCPCS: 77063; 77067

== ENCOUNTER → 2022-07-19 | Outpatient (CLI) | payer BC ==
--- NOTE | 2022-07-20 09:28 | MM ---
Reason for Exam: Screening (asymptomatic). Last screening mammogram was performed 12 month(s) ago. Patient History: Menarche at age 13. First Full-Term at age 20. Right ovary removed at age 45. Hysterectomy at age 45. Patient has history of breast feeding. Other cancer, age 29. Paternal aunt had breast cancer, age 50. Risk Values: Karol 5 year model risk: 0.9%. NCI Lifetime model risk: 7.0%. Prior Study Comparison: 05/08/2019 Bilateral Screening Mammogram, [facility]. 07/30/2020 Bilateral Screening Mammogram, [facility]. 07/18/2021 Bilateral Screening Mammogram, [facility]. Tissue Density: The breast tissue is heterogeneously dense. This may lower the sensitivity of mammography. Findings: Analyzed By CAD. There is no suspicious group of microcalcifications or new suspicious mass in either breast. No significant change from prior exams. Overall Assessment: Negative, BI-RAD 1 Management: Screening Mammogram of both breasts in 1 year. A clinical breast exam by your physician is recommended on an annual basis and results should be correlated with mammographic findings. Electronically signed and approved by: Arthur Frankel D.O.
== END | disposition home or self-care (01) ==
LOC: RADMAMWWP 09:34
PROVIDERS: ATTEND Family Medicine
DX: Z12.31 Encounter for screening mammogram for malignant neoplasm of breast (principal); Z80.3 Family history of malignant neoplasm of breast
CPT/HCPCS: 77063; 77067

== ENCOUNTER 2023-03-13 19:50 | Emergency (ER) | payer BC ==
[2023-03-13] MEDS ORDERED: SODIUM CHLORIDE 0.9% 1,000 ML IV STA (20:49)
[2023-03-13] MEDS ORDERED: LORazepam 1 MG TAB PO STA (20:49)
--- NOTE | 2023-03-13 20:50 | ED ---
Chest Pain HPI - General Chief Complaint: Chest Pain Stated Complaint: Chest Pain/sob Time Seen by Provider: 03/13/23 20:40 Source: patient Mode of arrival: wheelchair - History of Present Illness Initial Comments: 52-year-old female presenting with chief complaint of chest pain. Pain started today about 3 hours prior to arrival. Pain is located primarily on the left mitali e and feels a sore muscle. Pain only really bothers her when she moves her left arm in a certain fashion. No difficulty breathing or palpitations. No numbness, tingling, weakness. No radiation of pain down the arm or the neck. Patient does have history of [place] and stent 4 years ago. - Related Data Home Medications Medication Instructions Recorded Confirmed Ferrous Sulfate [Iron (65 MG 325 mg PO DAILY 03/16/15 03/13/23 Elemental)] Magnesium 200 mg PO DAILY 03/16/15 03/13/23 calcitrioL [Calcitriol] 0.25 mcg PO BID 03/16/15 03/13/23 Levothyroxine Sodium [Synthroid] 175 mcg PO [id number] 06/11/15 03/13/23 Multivitamins, Thera [Multivitamin 1 tab PO DAILY 07/18/18 03/13/23 (formulary)] Metoprolol Tartrate [Lopressor] 25 mg PO DAILY 10/10/19 03/13/23 lisinopriL [Zestril] 5 mg PO DAILY 10/10/19 03/13/23 Albuterol Sulfate [Albuterol 2 puff PO RT-Q6H PRN 03/13/23 03/13/23 Sulfate Hfa] Rizatriptan Odt [Maxalt Insulation Board Back Tender] 10 mg PO BID PRN 03/13/23 03/13/23 Previous Rx's Medication Instructions Recorded Aspirin 81 mg PO DAILY chew 07/21/18 Atorvastatin [Lipitor] 80 mg PO HS #90 tab 07/21/18 Allergies Allergy/AdvReac Type Severity Reaction Status Date / Time erythromycin base Allergy Rash/Hives Verified 03/13/23 21:39 Review of Systems ROS Statement: Those systems with pertinent positive or pertinent negative responses have been documented in the HPI. ROS Other: All systems not noted in ROS Statement are negative. EKG Findings - EKG Comments: EKG Findings:: Sinus rhythm ventricular rate 95. AZ interval 150. QRS 85. QT 347. QTC 400. No ST deviation or T wave inversion. Left axis deviation. Past Medical History Past Medical History: Cancer, Myocardial Infarction ([place]), Thyroid Disorder Additional Past Medical History / Comment(s): hx. anemia, hx. thyroid cancer, hx. migraine headaches Last Myocardial Infarction Date:: History of Any Multi-Drug Resistant Organisms: None Reported Past Surgical History: Heart Catheterization With Stent, Hysterectomy Additional Past Surgical History / Comment(s): D & C, thyroidectomy x 2 w/3 of parathyroid glands removed,heart stents x2,egd,colonoscopy Past Anesthesia/Blood Transfusion Reactions: No Reported Reaction Date of Last Stent Placement:: Past Psychological History: Anxiety Smoking Status: Former smoker Past Alcohol Use History: Rare Past Drug Use History: None Reported - Past Family History Mother Family Medical History: No Reported History General Exam Limitations: no limitations General appearance: alert, in no apparent distress Head exam: Present: atraumatic, normocephalic, normal inspection Eye exam: Present: normal appearance, PERRL, EOMI. Absent: scleral icterus, conjunctival injection, periorbital swelling Neck exam: Present: normal inspection, full ROM Respiratory exam: Present: normal lung sounds bilaterally, chest wall tenderness. Absent: respiratory distress, wheezes, rales, rhonchi, stridor Cardiovascular Exam: Present: regular rate, normal rhythm, normal heart sounds. Absent: systolic murmur, diastolic murmur, rubs, gallop, clicks Neurological exam: Present: alert, oriented X3, CN II-XII intact Psychiatric exam: Present: normal affect, normal mood Skin exam: Present: warm, dry, intact, normal color. Absent: rash Course Vital Signs 03/13/23 03/13/23 03/14/23 19:53 22:00 00:37 Temperature 98.5 F 98.2 F Pulse Rate 104 H 82 89 Respiratory 18 18 16 Rate Blood Pressure 115/74 120/80 122/84 O2 Sat by Pulse 96 99 99 Oximetry Chest Pain MDM - MDM Was pt. sent in by a medical professional or institution (, PA, JOURNALISM INTERN, urgent care, hospital, or [facility]...) When possible be specific @ -No Did you speak to anyone other than the patient for history (EMS, parent, family, police, friend...)? What history was obtained from this source @ -No Did you review nursing and triage notes (agree or disagree)? Why? @ -I reviewed and agree with nursing and triage notes Were old charts reviewed (outside hosp., previous admission, EMS record, old EKG, old radiological studies, urgent care reports/EKG's, [facility] records)? Report findings @ -No old charts were reviewed Differential Diagnosis (chest pain, altered mental status, abdominal pain women, abdominal pain men, vaginal bleeding, weakness, fever, dyspnea, syncope, headache, dizziness, GI bleed, back pain, seizure, CVA, palpatations, mental health, musculoskeletal)? @ -MDM Differential Chest Pain: Stable Angina, Unstable Angina, STEMI, NSTEMI Aortic Dissection, Pneumothorax, Musculoskeletal, Esophageal Spasm GERD, Cholecystitis, Pancreatitis, Zoster This is not meant to be an all-inclusive list. EKG interpreted by me (3pts min.). @ -As above X-rays interpreted by me (1pt min.). @ -Chest x-ray shows elevated right diaphragm versus hernia. Air-fluid levels within loops of colon are present CT interpreted by me (1pt min.). @ -CT shows herniation of the stomach into the right posterior thoracic base. Stomach a little into the duodenum is small but may be nondistended. There are normal nondistended loops of colon within this posterior right diaphragmatic hernia. Hernia has increased in size comparison 2018 U/S interpreted by me (1pt. min.). @ -None done What testing was considered but not performed or refused? (CT, X-rays, U/S, labs)? Why? @ -None What meds were considered but not given or refused? Why? @ -None Did you discuss the management of the patient with other professionals (professionals i.e. , PA, J[employer]RNA[employer]ISM INTER[employer], lab, RT, psych nurse, social worker psychiatric, chief creative officer, teacher, forest officer, pillowcase folder)? Give summary @ -No Was smoking cessation discussed for >3mins.? @ -No Was critical care preformed (if so, how long)? @ -No Were there social determinants of health that impacted care today? How? (Homelessness, low income, unemployed, alcoholism, drug addiction, transportation, low edu. Level, literacy, decrease access to med. care, fdc, rehab)? @ -No Was there de-escalation of care discussed even if they declined (Discuss DNR or withdrawal of care, Hospice)? DNR status @ -No What co-morbidities impacted this encounter? (DM, HTN, Smoking, COPD, CAD, Cancer, CVA, ARF, Chemo, Hep., AIDS, mental health diagnosis, sleep apnea, mor bid obesity)? @ -History of [place] Was patient admitted / discharged? Hospital course, mention meds given and route, prescriptions, significant lab abnormalities, going to OR and other pertinent info. @ -52-year-old female presenting with chief complaint of chest pain that started today. Located on the left side of the chest worst with moving her left arm. Pain is reproducible on exam. Heart and lungs clear to auscultation. Lab work is grossly negative including troponin. Chest x-ray shows large hiatal hernia with possible air-fluid levels. CT redemonstrates this hiatal hernia with normal bowel loops. Patient is having no difficulty breathing. Given the patient's history and recommended that she stay for observation, she declined at this time stating that she would rather be at home in her own bed. I explained to the patient that this would be leaving AGAINST MEDICAL ADVICE which may result in permanent injury or . She is of sound mind and body and able to make her own decisions and continues to request discharge. Patient will be signed out AMA. Given follow-up instructions. Follow-up with PCP. Report back to ER with any new or worsening symptoms. Discussed return parameters and answered all questions. Patient conveyed verbal understanding and agreed to the plan. I discussed this case in detail with my attending Dr. Hayes Undiagnosed new problem with uncertain prognosis? @ -No Drug Therapy requiring intensive monitoring for toxicity (Heparin, Nitro, Insulin, Cardizem)? @ -No Were any procedures done? @ -No Diagnosis/symptom? @ -Chest pain, hiatal hernia Acute, or Chronic, or Acute on Chronic? @ -Acute Uncomplicated (without systemic symptoms) or Complicated (systemic symptoms)? @ -Uncomplicated Side effects of treatment? @ -No Exacerbation, Progression, or Severe Exacerbation? @ -No Poses a threat to life or bodily function? How? (Chest pain, [place], [place], pneumonia, PE, COPD, DKA, ARF, appy, cholecystitis, CVA, Diverticulitis, Homicidal, Suicidal, threat to staff... and all critical care pts) @ -Potential Disposition Clinical Impression: Hiatal hernia Disposition: LEFT AGAINST MEDICAL ADVICE Condition: Fair Instructions (If sedation given, give patient instructions): Chest Pain (ED), Hiatal Hernia (ED) Additional Instructions: Follow-up with PCP and surgeon. Report back to ER with any new or worsening symptoms. Is patient prescribed a controlled substance at d/c from ED?: No Referrals: Susana Chin MD [Primary Care Provider] - 1-2 days Martin Fam MD [Medical Doctor] - 1-2 days Time of Disposition: 00:05
[2023-03-13 20:59] LABS: Basophils % (A) 0 %; Eosinophils # (A) 0.3 k/uL (0-0.7); Eosinophils % (A) 4 %; HCT 41.9 % (34.0-46.0); HGB 14.1 gm/dL (11.4-16.0); Lymphocytes # (A) 1.4 k/uL (1.0-4.8); Lymphocytes % (A) 17 %; MCH 29.3 pg (25.0-35.0); MCHC 33.6 g/dL (31.0-37.0); MCV 87.3 fL (80.0-100.0); Mean Platelet Volume 7.7; Monocytes # (A) 0.6 k/uL (0-1.0); Monocytes % (A) 7 %; Neutrophils # (A) 5.8 k/uL (1.3-7.7); Neutrophils % (A) 70 %; Platelet Count 248 k/uL (150-450); RDW 12.9 % (11.5-15.5); WBC 8.3 k/uL (3.8-10.6)
[2023-03-13 21:04] LABS: ALT 30 U/L (4-34); AST 32 U/L (14-36); African American GFR (CKD) >90 (>60 ml/min/1.73 sqM); Albumin 4.1 g/dL (3.5-5.0); Alkaline Phosphatase 104 U/L (38-126); Anion Gap 11 mmol/L; Blood Urea Nitrogen 22 mg/dL (7-17); Calcium 8.3 mg/dL (8.4-10.2); Carbon Dioxide 27 mmol/L (22-30); Chloride 102 mmol/L (98-107); Glucose 169 mg/dL (74-99); Non-African American GFR(CKD) >90 (>60 ml/min/1.73 sqM); Potassium 3.9 mmol/L (3.5-5.1); Sodium 140 mmol/L (137-145); Total Bilirubin 0.7 mg/dL (0.2-1.3); Total Protein 7.2 g/dL (6.3-8.2)
[2023-03-13 21:08] LABS: INR 0.9 (<1.2); Partial Thromboplastin Time 24.2 sec (22.0-30.0)
--- NOTE | 2023-03-13 22:26 | XR ---
EXAMINATION TYPE: XR chest 2V DATE OF EXAM: 03/13/2023 COMPARISON: 07/18/2020 INDICATION: Chest pain TECHNIQUE: Frontal and lateral views of the chest are obtained. FINDINGS: The heart size is normal. The pulmonary vasculature is normal. The lungs are clear. There is a large herniation of the right diaphragm. Multiple air-filled loops of bowel are present wi th air-fluid levels. Hiatal hernia is likely present. IMPRESSION: 1. Elevated right diaphragm versus hernia. Air-fluid levels within loops of colon are present.
--- NOTE | 2023-03-13 23:47 | CT ---
EXAMINATION TYPE: CT ChestAbdPelvis w con DATE OF EXAM: 03/13/2023 INDICATION: Chest pain COMPARISON: Chest x-ray same date CT DLP: 2532 mGycm CONTRAST: Performed without Oral Contrast and with IV Contrast, patient injected with 100ml mL of Isovue 300. TECHNIQUE: Axial images at 5 mm thick sections. Reconstructed images in the coronal plane. Delayed images through the kidneys. FINDINGS: CT CHEST: Portion of the thyroid visualized is normal. There is some streak opacity within the right lung base. Correlate for atelectasis. There is a large abdominal hernia into the posterior mediastinum and right posterior lung base. The s tomach has herniated into the right lower thorax. This is the air-fluid level identified on chest x-r ay. The outlet into the upper abdomen and duodenum is narrowed at the hernia site. However this could be related to nondistention. There are loops of colon within the hernia which are nondilated and do not appear obstructed. This hernia has increased in size from the comparison of 07/18/2018. No enlarged mediastinal or hilar adenopathy is evident. The ascending aorta diameter at the level of the main pulmonary artery is 3.5 cm. The main pulmonary artery diameter at the bifurcation is 2.[address] ABDOMEN: Liver: Normal Spleen: Normal Pancreas: Normal Adrenal glands: The adrenal glands are normal. Gallbladder: Normal Kidneys: No masses are evident. No hydronephrosis is present. No cysts are present. No renal stone s are identified. Aorta: Normal Inferior vena cava: Normal. CT PELVIS: Loops of bowel within the abdomen and pelvis are normal. The colon appears nonobstructive. Small bow el loops are unremarkable. Note is made of diverticular changes within the sigmoid colon. The study is without oral contrast which limits evaluation. Appendix: The appendix is difficult to differentiate from small bowel loops. No suspicious dilated tu bular structure or inflammatory change is evident. Urinary bladder: Decompressed with limited evaluation. Genitourinary structures: Uterus is not identified. Adnexa are normal. Osseous structures: No suspicious lytic or sclerotic lesions. There is some mild scoliosis of the lum bar spine. IMPRESSIONS: 1. Herniation of the stomach into the right posterior thoracic base. Stomach outlet into the duodenum is small but may be nondistended. There are normal nondistended loops of colon within this posterior right diaphragmatic hernia. Hernia has increased in size comparison 2018.
[2023-03-14 00:38] VITALS: BP 122/84; PULSE 89; RESP 16; TEMP 98.2
== END 2023-03-14 00:38 | disposition left against medical advice (07) ==
LOC: EC 19:50
DX: K44.9 Diaphragmatic hernia without obstruction or gangrene (principal); I25.2 Old myocardial infarction; E07.9 Disorder of thyroid, unspecified; Z87.891 Personal history of nicotine dependence; Z79.890 Hormone replacement therapy; Z79.899 Other long term (current) drug therapy; Z88.1 Allergy status to other antibiotic agents
CPT/HCPCS: 36415; 93005; 80053; 83735; 84484; 85025; 85610; 85730; 71046; 71260; 74177; 99285; 96360; Q9967

== ENCOUNTER → 2023-07-26 | Outpatient (CLI) | payer BC ==
--- NOTE | 2023-07-26 17:44 | FL ---
EXAMINATION TYPE: FL barium swallow DATE OF EXAM: 07/26/2023 COMPARISON: None HISTORY: Large hiatal hernia TECHNIQUE: A double air contrast esophagram study is performed. Attention is paid to the expected re gion for a hiatal hernia. FINDINGS: Esophagus dilates to normal caliber and has normal contour to the gastroesophageal junction. Gastroes ophageal junction however appears to lie within the medial right diaphragm. The right diaphragm is ma rkedly elevated. Small amount of colonic bowel gas is identified below the diaphragm. Gastroesophagea l junction needs to right side stomach lies below the diaphragm in the elevated right abdomen. Note is made of a few tertiary contractions during the examination. Small amount reflux into the dist al third of the esophagus could be identified with a couple of episodes of mild reflux during the exa mination. IMPRESSION: 1. Stomach lies within the right upper quadrant of the abdomen below the elevated right diaphragm. No hiatal hernia is identified. Ligament of Treitz appears to be within a normal position in the duoden al bulb appears to lie within a normal position. Consider volvulus. CT abdomen with oral contrast may be useful for additional workup.
== END | disposition home or self-care (01) ==
LOC: RADUSWWP 09:34
PROVIDERS: ATTEND Surgery
DX: K44.9 Diaphragmatic hernia without obstruction or gangrene (principal); J98.6 Disorders of diaphragm
CPT/HCPCS: 74220

== ENCOUNTER 2023-12-23 22:39 | Emergency (ER) | payer BC ==
[2023-12-23 23:16] LABS: Glucose,Whole Blood 154 mg/dL (70-110)
--- NOTE | 2023-12-23 23:49 | XR ---
EXAM: XR Chest, 1 View CLINICAL HISTORY: ITS.REASON XR Reason: hypotension TECHNIQUE: Frontal view of the chest. COMPARISON: 03/13/23 FINDINGS: Lungs: Bibasilar opacities. Reduced lung volumes. Pleural space: Unremarkable. No pneumothorax. Heart: Stable heart size. Bones/joints: Possible small effusions. IMPRESSION: 1. Bibasilar opacities. Findings may represent atelectasis or infiltrates. 2. Possible small effusions.
[2023-12-23] MEDS: SODIUM CHLORIDE 0.9% 1,000 ML IV SCH (23:50)
[2023-12-23] MEDS: NOREPINEPHRINE 8 MG in SODIUM CHLORIDE 0.9% 250 ML IV ONE (23:55)
[2023-12-24 00:12] LABS: Basophils # (A) 0.1 k/uL (0-0.2); Basophils % (A) 0 %; Eosinophils # (A) 0.2 k/uL (0-0.7); Eosinophils % (A) 1 %; HCT 30.9 % (34.0-46.0); HGB 9.9 gm/dL (11.4-16.0); Hypochromasia Slight; Lymphocytes # (A) 0.5 k/uL (1.0-4.8); Lymphocytes % (A) 1 %; MCH 29.3 pg (25.0-35.0); MCHC 32.1 g/dL (31.0-37.0); MCV 91.3 fL (80.0-100.0); Mean Platelet Volume 8.6; Monocytes # (A) 1.7 k/uL (0-1.0); Monocytes % (A) 5 %; Neutrophils # (A) 34.5 k/uL (1.3-7.7); Neutrophils % (A) 93 %; Platelet Count 427 k/uL (150-450); RBC 3.39 m/uL (3.80-5.40); RDW 14.6 % (11.5-15.5); WBC 37.2 k/uL (3.8-10.6)
[2023-12-24] MEDS ORDERED: VANCOMYCIN IV PER PHARMACY 1 EACH MISC MISCELLANE PRN (00:26)
[2023-12-24 00:46] LABS: ALT 24 U/L (4-34); African American GFR (CKD) 24 (>60 ml/min/1.73 sqM); Albumin 2.5 g/dL (3.5-5.0); Anion Gap 8 mmol/L; Blood Urea Nitrogen 36 mg/dL (7-17); Calcium 7.1 mg/dL (8.4-10.2); Carbon Dioxide 33 mmol/L (22-30); Chloride 90 mmol/L (98-107); Glucose 130 mg/dL (74-99); Non-African American GFR(CKD) 21 (>60 ml/min/1.73 sqM); Sodium 131 mmol/L (137-145); Total Bilirubin 0.8 mg/dL (0.2-1.3); Total Protein 5.2 g/dL (6.3-8.2)
[2023-12-24 00:51] LABS: INR 1.1 (<1.2); Partial Thromboplastin Time 25.5 sec (22.0-30.0)
[2023-12-24 00:52] LABS: Magnesium 1.7 mg/dL (1.6-2.3); Potassium 4.1 mmol/L (3.5-5.1)
[2023-12-24 00:53] LABS: AST 33 U/L (14-36); Alkaline Phosphatase 121 U/L (38-126)
[2023-12-24 00:54] LABS: NT-Pro-B-Type Natriuretic Pept 1960 pg/mL
--- NOTE | 2023-12-24 01:01 | ED ---
General Adult HPI - General Source: patient, EMS Mode of arrival: EMS Limitations: no limitations <Omer Billy - Last Filed: 12/24/23 02:52> <Jose R Duffy - Last Filed: 12/26/23 07:39> - General Chief complaint: Weakness Stated complaint: Hypotension Time Seen by Provider: 12/23/23 22:47 - History of Present Illness Initial comments: 53-year-old female presenting to the ED with complaints of ear ringing. Patient released from [facility] yesterday for hiatal hernia surgery. Today notes ringing of her ears and some lightheadedness. Per EMS noted hypotension upon arrival and gave push dose epi which brought her pressure up to the 140s systolic. Upon initial arrival they noted blood pressure was in the 60s systolic. Patient is not on blood thinners. Denies chest pains or shortness of breath. Denies any blood or dark stools. Denies abdominal pain. (Omer Billy) - Related Data Home Medications Medication Instructions Recorded Confirmed Ferrous Sulfate [Iron (65 MG 325 mg PO DAILY 03/16/15 03/13/23 Elemental)] Magnesium 200 mg PO DAILY 03/16/15 03/13/23 calcitrioL 0.25 mcg PO BID 03/16/15 03/13/23 Levothyroxine Sodium [Synthroid] 175 mcg PO [id number] 06/11/15 03/13/23 Multivitamins, Thera [Multivitamin 1 tab PO DAILY 07/18/18 03/13/23 (formulary)] Metoprolol Tartrate [Lopressor] 25 mg PO DAILY 10/10/19 03/13/23 lisinopriL [Zestril] 5 mg PO DAILY 10/10/19 03/13/23 Albuterol Sulfate [Albuterol 2 puff PO RT-Q6H PRN 03/13/23 03/13/23 Sulfate Hfa] Rizatriptan Odt [Maxalt Oil Sprayer] 10 mg PO BID PRN 03/13/23 03/13/23 Previous Rx's Medication Instructions Recorded Aspirin 81 mg PO DAILY chew 07/21/18 Atorvastatin [Lipitor] 80 mg PO HS #90 tab 07/21/18 Allergies Allergy/AdvReac Type Severity Reaction Status Date / Time erythromycin base Allergy Rash/Hives Verified 12/23/23 22:50 Review of Systems ROS Other: All systems not noted in ROS Statement are negative. <Omer Billy - Last Filed: 12/24/23 02:52> ROS Other: All systems not noted in ROS Statement are negative. <Jose R Duffy - Last Filed: 12/26/23 07:39> ROS Statement: Those systems with pertinent positive or pertinent negative responses have been documented in the HPI. Past Medical History Past Medical History: Cancer, Myocardial Infarction (SC), Thyroid Disorder Additional Past Medical History / Comment(s): hx. anemia, hx. thyroid cancer, hx. migraine headaches Last Myocardial Infarction Date:: History of Any Multi-Drug Resistant Organisms: None Reported Past Surgical History: Heart Catheterization With Stent, Hysterectomy Additional Past Surgical History / Comment(s): D & C, thyroidectomy x 2 w/3 of parathyroid glands removed,heart stents x2,egd,colonoscopy Past Anesthesia/Blood Transfusion Reactions: No Reported Reaction Date of Last Stent Placement:: Past Psychological History: Anxiety Smoking Status: Former smoker Past Alcohol Use History: Rare Past Drug Use History: None Reported - Past Family History Mother Family Medical History: No Reported History <Omer Billy - Last Filed: 12/24/23 02:52> General Exam Limitations: no limitations General appearance: alert, lethargic Eye exam: Present: normal appearance Neck exam: Present: normal inspection Respiratory exam: Present: normal lung sounds bilaterally, decreased breath sounds Cardiovascular Exam: Present: regular rate GI/Abdominal exam: Present: soft. Absent: tenderness, guarding, rebound, rigid Neurological exam: Present: alert Skin exam: Present: warm, dry <Omer Billy - Last Filed: 12/24/23 02:52> Course Vital Signs 12/23/23 12/23/23 12/23/23 22:43 23:30 23:45 Temperature 98.3 F Pulse Rate 113 H 108 H 105 H Respiratory 18 18 18 Rate Blood Pressure 68/42 74/50 81/55 O2 Sat by Pulse 100 89 L 91 L Oximetry 12/23/23 12/24/23 12/24/23 23:58 00:13 01:09 Temperature Pulse Rate 101 H 102 H 106 H Respiratory 18 18 17 Rate Blood Pressure 67/44 78/47 84/56 O2 Sat by Pulse 95 96 96 Oximetry 04/15/24 04/15/24 04/15/24 01:13 01:31 01:46 Temperature Pulse Rate 105 H 106 H 109 H Respiratory 15 17 17 Rate Blood Pressure 99/47 88/56 85/64 O2 Sat by Pulse 96 96 96 Oximetry 12/24/23 12/24/23 12/24/23 02:08 02:45 03:00 Temperature 98.2 F Pulse Rate 114 H 110 H 112 H Respiratory 25 H 24 20 Rate Blood Pressure 96/63 92/58 89/73 O2 Sat by Pulse 96 96 96 Oximetry 12/24/23 12/24/23 12/24/23 03:15 03:30 03:45 Temperature Pulse Rate 108 H 106 H 109 H Respiratory 24 24 25 H Rate Blood Pressure 104/58 77/54 86/49 O2 Sat by Pulse 97 97 97 Oximetry 12/24/23 04:00 Temperature Pulse Rate 112 H Respiratory 24 Rate Blood Pressure 103/60 O2 Sat by Pulse 96 Oximetry Medical Decision Making - Lab Data Result diagrams: 12/23/23 23:37 12/23/23 23:37 <Omer Billy - Last Filed: 12/24/23 02:52> - Lab Data Result diagrams: 12/23/23 23:37 12/23/23 23:37 <Jose R Duffy - Last Filed: 12/26/23 07:39> - Medical Decision Making Was pt. sent in by a medical professional or institution (Dr. PA, INSURANCE CLAIMS ASSISTANT, urgent care, hospital, or [facility]...) When possible be specific @ -No Did you speak to anyone other than the patient for history (EMS, parent, family, police, friend...)? What history was obtained from this source @ -No Did you review nursing and triage notes (agree or disagree)? Why? @ -I reviewed and agree with nursing and triage notes Were old charts reviewed (outside hosp., previous admission, EMS record, old EKG, old radiological studies, urgent care reports/EKG's, [facility] records)? Report findings @ -Paperwork from of reviewed showing recent history of hiatal hernia surgery Differential Diagnosis (chest pain, altered mental status, abdominal pain women, abdominal pain men, vaginal bleeding, weakness, fever, dyspnea, syncope, headache, dizziness, GI bleed, back pain, seizure, CVA, palpatations, mental health, musculoskeletal)? @ -Differential Fever: Pneumonia, viral URI, endocarditis, myocarditis, pericarditis, otitis, sinusitis, peritonsillar Abscess, retropharyngeal Abscess, epiglottitis, peritonitis, appendicitis, Susan cystitis, diverticulitis, hepatitis, colitis, UTI, PID, TOA, pyelonephritis, prostatitis, epididymitis, meningitis, encephalitis, pulmonary embolism, CVA, thyroid storm, pancreatitis, adrenal crisis, cavernous sinus thrombosis, this is not meant to be an all-inclusive list. EKG interpreted by me (3pts min.). @ -EKG interpreted me showing a sinus tachycardia at [address] or T wave changes. Rate of 109 bpm. AR 126, QRS 81, QT/QTc 326/390. X-rays interpreted by me (1pt min.). @ -None done CT interpreted by me (1pt min.). @ -CT chest abdomen pelvis interpreted me. Significant for acute fracture posterior left seventh rib associated with displaced cortical fragment projecting 0.5 cm into the thoracic cavity with small left apical pneumothorax approximately 5%. Hematoma of the left chest wall measuring 8 x 3 x 10 cm. Small bilateral partially loculated pleural effusions with significant atelectasis at the lung bases with near complete collapse of left lower lobe. Small hiatal hernia. No pulmonary embolism. No evidence of bleed. U/S interpreted by me (1pt. min.). @ -None done What testing was considered but not performed or refused? (CT, X-rays, U/S, labs)? Why? @ -None What meds were considered but not given or refused? Why? @ -None Did you discuss the management of the patient with other professionals (professionals i.e. , PA, INSURANCE CLAIMS ASSISTANT, lab, RT, psych nurse, director social, circulation sales representative, teacher, credit compliance officer, lead case manager)? Give summary @ -Case discussed with Dr. Lovett, who accepted transfer the patient. Was smoking cessation discussed for >3mins.? @ -No Was critical care preformed (if so, how long)? @ -Yes, 43 minutes. Were there social determinants of health that impacted care today? How? (Homelessness, low income, unemployed, alcoholism, drug addiction, transportation, low edu. Level, literacy, decrease access to med. care, group home, rehab)? @ -No Was there de-escalation of care discussed even if they declined (Discuss DNR or withdrawal of care, Hospice)? DNR status @ -No What co-morbidities impacted this encounter? (DM, HTN, Smoking, COPD, CAD, Cancer, CVA, ARF, Chemo, Hep., AIDS, mental health diagnosis, sleep apnea, morbid obesity)? @ -Obesity, recent hiatal hernia surgery Was patient admitted / discharged? Hospital course, mention meds given and route, prescriptions, significant lab abnormalities, going to OR and other pertinent info. @ -Transfer 53-year-old female arriving to the ED at 2239 with complaints of lightheadedness, ringing in her ears and upon EMS arrival noted significant hypotension in the 60s systolic. She was given a 500 mL bolus and 10 mcg of epi by EMS with improvement of hypotension however upon arrival to the ED became hypotensive and tachycardic again concerning for sepsis. Patient immediately given a 2 L bolus upon arrival. Blood cultures and lactic acid were ordered. vancomycin and Zosyn were ordered at 12:26 AM and 1 AM respectively. Despite fluid resuscitation, noted continued hypotension and patient started on Levo phed. Laboratory studies reviewed. Labs significant for an elevated white blood cell count at 37.2. Chemistry panel significant for kidney injury with a BUN and creatinine of 36 and 2.54 respectively. D-dimer elevated at 4.94. Troponin undetectable. Symptoms likely related to surgical complications and therefore patient transferred over to [facility]. Undiagnosed new problem with uncertain prognosis? @ -No Drug Therapy requiring intensive monitoring for toxicity (Heparin, Nitro, Insulin, Cardizem)? @ -No Were any procedures done? @ -No Diagnosis/symptom? @ -Sepsis, surgical complications Acute, or Chronic, or Acute on Chronic? @ -Acute Uncomplicated (without systemic symptoms) or Complicated (systemic symptoms)? @ -Complicated Side effects of treatment? @ -No Exacerbation, Progression, or Severe Exacerbation? @ -No Poses a threat to life or bodily function? How? (Chest pain, USA, SC, pneumonia, PE, COPD, DKA, ARF, appy, cholecystitis, CVA, Diverticulitis, Homicidal, Suicidal, threat to staff... and all critical care pts) @ -Yes (Omer Billy) Notified by nursing staff as well as the midlevel provider the patient's hypotension. Patient had recent thoracic surgery to repair what sounds like a complicated hiatal hernia at [facility]. Has been feeling somewhat lightheaded with ear ringing. No other complaints at this time. Surgical incision appears clean. Presents for further evaluation at this time. Ultimately patient will likely be transferred back to [facility]. I recommended additional IV fluids and starting peripheral norepinephrine. Patient did respond well to the peripheral norepinephrine. Patient started on empiric antibiotics when white count returned at 37. CT ang iogram imaging of the chest abdomen pelvis was ordered and is pending at this time. Patient was pending transfer to [facility] pending results of CT imaging. It is symptomatic shift and patient will be transferred after results of CT imaging. Midlevel provider Felipe will discuss results with nighttime ER physician if any additional workup is required. CT imaging did return after the end of my shift, appears to have findings consistent with likely surgical complications. Patient is requiring minimal vasopressor support at this time and patient was transferred in serious condition to [facility]. (Jose R Duffy) - Lab Data Lab Results 12/23/23 12/23/23 12/23/23 Range/Units 02:55 23:06 23:37 WBC 37.2 H (3.8-10.6) k/uL RBC 3.39 L (3.80-5.40) m/uL Hgb 9.9 L (11.4-16.0) gm/dL Hct 30.9 L (34.0-46.0) % MCV 91.3 (80.0-100.0) fL MCH 29.3 (25.0-35.0) pg MCHC 32.1 (31.0-37.0) g/dL RDW 14.6 (11.5-15.5) % Plt Count 427 (150-450) k/uL MPV 8.6 Neutrophils % 93 % Lymphocytes % 1 % Monocytes % 5 % Eosinophils % 1 % Basophils % 0 % Neutrophils # 34.5 H (1.3-7.7) k/uL Lymphocytes # 0.5 L (1.0-4.8) k/uL Monocytes # 1.7 H (0-1.0) k/uL Eosinophils # 0.2 (0-0.7) k/uL Basophils # 0.1 (0-0.2) k/uL Manual Slide Review Performed Hypochromasia Slight PT (10.0-12.5) sec INR (<1.2) APTT (22.0-30.0) sec D-Dimer (<0.60) mg/L FEU Sodium (137-145) mmol/L Potassium (3.5-5.1) mmol/L Chloride (98-107) mmol/L Carbon Dioxide (22-30) mmol/L Anion Gap mmol/L BUN (7-17) mg/dL Creatinine (0.52-1.04) mg/dL Est GFR (CKD-EPI)AfAm (>60 ml/min/1.73 sqM) Est GFR (CKD-EPI)NonAf (>60 ml/min/1.73 sqM) Glucose (74-99) mg/dL POC Glucose (mg/dL) 154 H (70-110) mg/dL POC Glu Nursing Staff Development Coordinator ID Ana M Arita Plasma Lactic Acid Cesar (0.7-2.0) mmol/L Calcium (8.4-10.2) mg/dL Magnesium (1.6-2.3) mg/dL Total Bilirubin (0.2-1.3) mg/dL AST (14-36) U/L ALT (4-34) U/L Alkaline Phosphatase (38-126) U/L Troponin I (0.000-0.034) ng/mL NT-Pro-B Natriuret Pep pg/mL Total Protein (6.3-8.2) g/dL Albumin (3.5-5.0) g/dL Urine Color Yellow Urine Appearance Cloudy H (Clear) Urine pH 5.0 (5.0-8.0) Ur Specific Bandon >1.050 H (1.001-1.035) Urine Protein 1+ H (Negative) Urine Glucose (UA) Negative (Negative) Urine Ketones Negative (Negative) Urine Blood Trace H (Negative) Urine Nitrite Negative (Negative) Urine Bilirubin Negative (Negative) Urine Urobilinogen <2.0 (<2.0) mg/dL Ur Leukocyte Esterase Small H (Negative) Urine RBC 79 H (0-5) /hpf Urine WBC 102 H (0-5) /hpf Ur Squamous Epith Cells 40 H (0-4) /hpf Urine Bacteria Many H (None) /hpf Stool Occult Blood (Negative) Influenza Type A (PCR) (Not Detectd) Influenza Type B (PCR) (Not Detectd) RSV (PCR) (Not Detectd) SARS-CoV-2 (PCR) (Not Detectd) 12/23/23 12/23/23 12/23/23 Range/Units 23:37 23:37 23:37 WBC (3.8-10.6) k/uL RBC (3.80-5.40) m/uL Hgb (11.4-16.0) gm/dL Hct (34.0-46.0) % MCV (80.0-100.0) fL MCH (25.0-35.0) pg MCHC (31.0-37.0) g/dL RDW (11.5-15.5) % Plt Count (150-450) k/uL MPV Neutrophils % % Lymphocytes % % Monocytes % % Eosinophils % % Basophils % % Neutrophils # (1.3-7.7) k/uL Lymphocytes # (1.0-4.8) k/uL Monocytes # (0-1.0) k/uL Eosinophils # (0-0.7) k/uL Basophils # (0-0.2) k/uL Manual Slide Review Hypochromasia PT 12.0 (10.0-12.5) sec INR 1.1 (<1.2) APTT 25.5 (22.0-30.0) sec D-Dimer 4.97 H (<0.60) mg/L FEU Sodium 131 L (137-145) mmol/L Potassium 4.1 (3.5-5.1) mmol/L Chloride 90 L (98-107) mmol/L Carbon Dioxide 33 H (22-30) mmol/L Anion Gap 8 mmol/L BUN 36 H (7-17) mg/dL Creatinine 2.54 H (0.52-1.04) mg/dL Est GFR (CKD-EPI)AfAm 24 (>60 ml/min/1.73 sqM) Est GFR (CKD-EPI)NonAf 21 (>60 ml/min/1.73 sqM) Glucose 130 H (74-99) mg/dL POC Glucose (mg/dL) (70-110) mg/dL POC Glu Nursing Staff Development Coordinator ID Plasma Lactic Acid Cesar (0.7-2.0) mmol/L Calcium 7.1 L (8.4-10.2) mg/dL Magnesium 1.7 (1.6-2.3) mg/dL Total Bilirubin 0.8 (0.2-1.3) mg/dL AST 33 (14-36) U/L ALT 24 (4-34) U/L Alkaline Phosphatase 121 (38-126) U/L Troponin I <0.012 (0.000-0.034) ng/mL NT-Pro-B Natriuret Pep 1960 pg/mL Total Protein 5.2 L (6.3-8.2) g/dL Albumin 2.5 L (3.5-5.0) g/dL Urine Color Urine Appearance (Clear) Urine pH (5.0-8.0) Ur Specific Bandon (1.001-1.035) Urine Protein (Negative) Urine Glucose (UA) (Negative) Urine Ketones (Negative) Urine Blood (Negative) Urine Nitrite (Negative) Urine Bilirubin (Negative) Urine Urobilinogen (<2.0) mg/dL Ur Leukocyte Esterase (Negative) Urine RBC (0-5) /hpf Urine WBC (0-5) /hpf Ur Squamous Epith Cells (0-4) /hpf Urine Bacteria (None) /hpf Stool Occult Blood (Negative) Influenza Type A (PCR) (Not Detectd) Influenza Type B (PCR) (Not Detectd) RSV (PCR) (Not Detectd) SARS-CoV-2 (PCR) (Not Detectd) 12/23/23 12/23/23 12/24/23 Range/Units 23:37 23:37 01:32 WBC (3.8-10.6) k/uL RBC (3.80-5.40) m/uL Hgb (11.4-16.0) gm/dL Hct (34.0-46.0) % MCV (80.0-100.0) fL MCH (25.0-35.0) pg MCHC (31.0-37.0) g/dL RDW (11.5-15.5) % Plt Count (150-450) k/uL MPV Neutrophils % % Lymphocytes % % Monocytes % % Eosinophils % % Basophils % % Neutrophils # (1.3-7.7) k/uL Lymphocytes # (1.0-4.8) k/uL Monocytes # (0-1.0) k/uL Eosinophils # (0-0.7) k/uL Basophils # (0-0.2) k/uL Manual Slide Review Hypochromasia PT (10.0-12.5) sec INR (<1.2) APTT (22.0-30.0) sec D-Dimer (<0.60) mg/L FEU Sodium (137-145) mmol/L Potassium (3.5-5.1) mmol/L Chloride (98-107) mmol/L Carbon Dioxide (22-30) mmol/L Anion Gap mmol/L BUN (7-17) mg/dL Creatinine (0.52-1.04) mg/dL Est GFR (CKD-EPI)AfAm (>60 ml/min/1.73 sqM) Est GFR (CKD-EPI)NonAf (>60 ml/min/1.73 sqM) Glucose (74-99) mg/dL POC Glucose (mg/dL) (70-110) mg/dL POC Glu Nursing Staff Development Coordinator ID Plasma Lactic Acid Cesar 2.1 H* (0.7-2.0) mmol/L Calcium (8.4-10.2) mg/dL Magnesium (1.6-2.3) mg/dL Total Bilirubin (0.2-1.3) mg/dL AST (14-36) U/L ALT (4-34) U/L Alkaline Phosphatase (38-126) U/L Troponin I (0.000-0.034) ng/mL NT-Pro-B Natriuret Pep pg/mL Total Protein (6.3-8.2) g/dL Albumin (3.5-5.0) g/dL Urine Color Urine Appearance (Clear) Urine pH (5.0-8.0) Ur Specific Bandon (1.001-1.035) Urine Protein (Negative) Urine Glucose (UA) (Negative) Urine Ketones (Negative) Urine Blood (Negative) Urine Nitrite (Negative) Urine Bilirubin (Negative) Urine Urobilinogen (<2.0) mg/dL Ur Leukocyte Esterase (Negative) Urine RBC (0-5) /hpf Urine WBC (0-5) /hpf Ur Squamous Epith Cells (0-4) /hpf Urine Bacteria (None) /hpf Stool Occult Blood Negative (Negative) Influenza Type A (PCR) Not Detected (Not Detectd) Influenza Type B (PCR) Not Detected (Not Detectd) RSV (PCR) Not Detected (Not Detectd) SARS-CoV-2 (PCR) Not Detected (Not Detectd) Disposition Time of Disposition: 01:30 - Out of Hospital Transfer - Req. Specs Out of Hospital Transfer - Requested Specifics: Other Emergency Center ([facility]) <Omer Billy - Last Filed: 12/24/23 02:52> <Jose R Duffy - Last Filed: 12/26/23 07:39> Clinical Impression: Sepsis, Post-operative complication Disposition: OTHER INSTITUTION NOT DEFINED Condition: Serious Referrals: Susana Chin MD [Primary Care Provider] - 1-2 days
[2023-12-24] MEDS: PIPERACILLIN-TAZOBACTAM 3.375 GM in SODIUM CHLORIDE 0.9% 100 ML IVPB SCH (01:40)
[2023-12-24] MEDS ORDERED: VANCOMYCIN 2,000 MG in SODIUM CHLORIDE 0.9% 500 ML 500 ML IVPB ONE (02:00)
--- NOTE | 2023-12-24 02:01 | CT ---
EXAM: CT Angiography Chest Without and With Intravenous Contrast CLINICAL HISTORY: ITS.REASON CT Reason: hypotension. eval for aortic injury/PE. post op TECHNIQUE: Axial computed tomographic angiography images of the chest without and with intravenous contrast. CTDI is 2824.1 mGy and DLP is 149.7 mGy-cm. This CT exam was performed using one or more of the following dose reduction techniques: automated exposure control, adjustment of the mA and/or kV according to patient size, and/or use of iterative reconstruction technique. MIP reconstructed images were created and reviewed. COMPARISON: 03/13/23 FINDINGS: There is an acute fracture through posterior left rib 7. There is a small cortical fragment which is displaced 0.5 cm into the thoracic cavity (series 201, image 29). No other fractures are demonstrated. There is a small left apical pneumothorax, approximately 5% hemithorax volume. There is no mediastinal shift. A small amount of subcutaneous emphysema extends through the left lateral chest wall. There is a hematoma of the left posterolateral chest wall measuring 8 x 3 x 10 cm. No active bleeding is visualized. There are small bilateral partially loculated pleural effusions. Significant atelectasis is present at the lung bases, with near-complete collapse of the left lower lobe. There is no aortic aneurysm or dissection. There is no traumatic aortic injury. There is no mediastinal hematoma. Main pulmonary artery is normal in caliber. There is no evidence of acute pulmonary embolism. Heart is mildly enlarged. There is no evidence of significant right ventricular strain coronary artery atherosclerosis is noted. Since prior exam, patient has undergone operative repair of previously seen large hiatal hernia. There is a small residual or recurrent hiatal hernia. Esophagus is fluid-filled. IMPRESSION: 1. Acute fracture posterior left rib 7, associated with displaced cortical fragment projecting 0.5 cm into the thoracic cavity. 2. Small left apical pneumothorax, approximately 5% hemithorax volume. 3. Hematoma of the left posterolateral chest wall measuring 8 x 3 x 10 cm. 4. Small bilateral partially loculated pleural effusions. Significant atelectasis at the lung bases with near-complete collapse of the left lower lobe. 5. No pulmonary embolism. 6. Small hiatal hernia. Fluid-filled esophagus suggesting reflux. EXAM: CT Angiography Abdomen and Pelvis Without and With Intravenous Contrast CLINICAL HISTORY: ITS.REASON CT Reason: hypotension. eval for aortic injury/PE. post op TECHNIQUE: Axial computed tomographic angiography images of the abdomen and pelvis without and with intravenous contrast. CTDI is 0 mGy and DLP is 0 mGy-cm. This CT exam was performed using one or more of the following dose reduction techniques: automated exposure control, adjustment of the mA and/or kV according to patient size, and/or use of iterative reconstruction technique. MIP reconstructed images were created and reviewed. COMPARISON: 03/13/23 FINDINGS: There is no aortic aneurysm or dissection. Celiac artery, SMA, renal arteries, DEVEN, bilateral iliac arteries, and visualized portions of the bilateral femoral arteries are adequately patent. No active bleeding is identified. There is curvilinear radiopaque material near the gastroesophageal junction compatible with interval operative change. There is no bowel obstruction or inflammation. There is no evidence of bowel injury. Appendix is normal. Oral contrast is present in the colon. There is diverticulosis without diverticulitis. Liver, gallbladder, spleen, pancreas, adrenal glands, and kidneys are unremarkable. There is no adenopathy, free air, or significant free fluid. Urinary bladder is incompletely distended. Uterus is surgically absent. There is no acute fracture or dislocation. IMPRESSION: 1. Aorta and its branch vessels are adequately patent. 2. Postoperative changes at the gastroesophageal junction. Correlate with operative history. <[id number]> Communications: 12/24/23 02:03 Call Doctor Regarding Other, called Dr. Minor on 12/23 02:07 (-04:00)
[2023-12-24 02:25] VITALS: TEMP 98.2
[2023-12-24 03:16] LABS: Appearance,Urine Cloudy (Clear); Bacteria,Urine Many /hpf; Bilirubin,Urine Negative (Negative); Blood,Urine Trace (Negative); Color,Urine Yellow; Glucose,Urine (UA) Negative (Negative); Ketones,Urine Negative (Negative); Leukocyte Esterase,Urine Small (Negative); Nitrite,Urine Negative (Negative); Protein,Urine 1+ (Negative); RBC,Urine 79 /hpf (0-5); Specific Gravity,Urine >1.050 (1.001-1.035); Squamous Epithelial Cell,Urine 40 /hpf (0-4); Urobilinogen,Urine <2.0 mg/dL (<2.0); WBC,Urine 102 /hpf (0-5)
[2023-12-24 03:43] VITALS: RESP 24
[2023-12-24 04:21] VITALS: BP 103/60; PULSE 112
[2023-12-24] MEDS ORDERED: PIPERACILLIN-TAZOBACTAM 3.375 GM in SODIUM CHLORIDE 0.9% 100 ML IVPB SCH (08:00)
== END 2023-12-24 04:44 | disposition other institution (70) ==
LOC: EC 22:39
DX: T88.9XXA Complication of surgical and medical care, unspecified, initial encounter (principal); A41.9 Sepsis, unspecified organism; Z87.891 Personal history of nicotine dependence; Z88.1 Allergy status to other antibiotic agents; Z11.52 Encounter for screening for COVID-19
CPT/HCPCS: 36415 ×2; 93005; 85379; 83880; 80053; 83605; 83735; 84484; 85025; 85610; 85730; 82272; 81001; 87040; 87636; 71045; 71275; 74174; 99291; 96365; 96366 ×4; 96368; J2543; Q9967

== ENCOUNTER 2024-08-03 12:46 | Emergency (ER) | payer BC ==
[2024-08-03 13:02] VITALS: TEMP 98.6
[2024-08-03 14:59] VITALS: RESP 20
--- NOTE | 2024-08-03 15:09 | ED ---
Recheck HPI - General Chief Complaint: Recheck/Abnormal Lab/Rx Stated Complaint: Hypertension Time Seen by Provider: 08/03/24 13:02 Source: patient, RN notes reviewed Mode of arrival: ambulatory Limitations: no limitations - History of Present Illness Initial Comments: This is a 54-year-old female presenting for migraine (11/17), hypertension and wound check. Patient endorses history of migraines, taking sumatriptan hand twice as well as Excedrin Migraine with minimal relief. Endorses taking her antihypertensive medications late today, including metoprolol and lisinopril (causing her blood pressure to go up to 158/111. Endorses having several left ribs removed following an infection in March that were subsequently packed with gauze and change daily by her daughter. Patient denies fever, chills, body aches, fatigue, chest pain, dyspnea, abdominal pain, N/V/D. MD Complaint: wound re-check Onset/Timin -: days(s) Returns Today for: wound recheck - Related Data Home Medications Medication Instructions Recorded Confirmed Ferrous Sulfate [Iron (65 MG 325 mg PO DAILY 03/16/15 03/13/23 Elemental)] Magnesium 200 mg PO DAILY 03/16/15 03/13/23 calcitrioL 0.25 mcg PO BID 03/16/15 03/13/23 Levothyroxine Sodium [Synthroid] 175 mcg PO [id number] 06/11/15 03/13/23 Multivitamins, Thera [Multivitamin 1 tab PO DAILY 07/18/18 03/13/23 (formulary)] Metoprolol Tartrate [Lopressor] 25 mg PO DAILY 10/10/19 03/13/23 lisinopriL [Zestril] 5 mg PO DAILY 10/10/19 03/13/23 Albuterol Sulfate [Albuterol 2 puff PO RT-Q6H PRN 03/13/23 03/13/23 Sulfate Hfa] Rizatriptan Odt [Maxalt Purchase Order Checker] 10 mg PO BID PRN 03/13/23 03/13/23 Previous Rx's Medication Instructions Recorded Aspirin 81 mg PO DAILY chew 07/21/18 Atorvastatin [Lipitor] 80 mg PO HS #90 tab 07/21/18 Allergies Allergy/AdvReac Type Severity Reaction Status Date / Time erythromycin base Allergy Rash/Hives Verified 08/03/24 12:58 Review of Systems ROS Statement: Those systems with pertinent positive or pertinent negative responses have been documented in the HPI. ROS Other: All systems not noted in ROS Statement are negative. Past Medical History Past Medical History: Cancer, Myocardial Infarction (PR), Thyroid Disorder Additional Past Medical History / Comment(s): hx. anemia, hx. thyroid cancer, hx. migraine headaches Last Myocardial Infarction Date:: History of Any Multi-Drug Resistant Organisms: None Reported Past Surgical History: Heart Catheterization With Stent, Hysterectomy Additional Past Surgical History / Comment(s): D & C, thyroidectomy x 2 w/3 of parathyroid glands removed,heart stents x2,egd,colonoscopy Past Anesthesia/Blood Transfusion Reactions: No Reported Reaction Date of Last Stent Placement:: Past Psychological History: Anxiety Smoking Status: Former smoker Past Alcohol Use History: Rare Past Drug Use History: None Reported - Past Family History Mother Family Medical History: No Reported History General Exam Limitations: no limitations General appearance: alert, in no apparent distress Head exam: Present: atraumatic, normocephalic, normal inspection Eye exam: Present: normal appearance, PERRL, EOMI. Absent: scleral icterus, conjunctival injection, periorbital swelling ENT exam: Present: normal exam, mucous membranes moist Neck exam: Present: normal inspection. Absent: tenderness, meningismus, lymphadenopathy Respiratory exam: Present: normal lung sounds bilaterally. Absent: respiratory distress, wheezes, rales, rhonchi, stridor Cardiovascular Exam: Present: regular rate, normal rhythm, normal heart sounds. Absent: systolic murmur, diastolic murmur, rubs, gallop, clicks GI/Abdominal exam: Present: soft, normal bowel sounds. Absent: distended, tenderness, guarding, rebound, rigid Extremities exam: Present: normal inspection, full ROM, normal capillary refill. Absent: tenderness, pedal edema, joint swelling, calf tenderness Back exam: Present: normal inspection Neurological exam: Present: alert, oriented X3, CN II-XII intact Psychiatric exam: Present: normal affect, normal mood Skin exam: Present: warm, dry, intact, normal color, other (Left anterior axillary wound appears flesh-colored and packed with fresh gauze, extending about 5 cm interiorly. Negative erythema, discharge, odor.). Absent: rash Course Vital Signs 08/03/24 08/03/24 08/03/24 12:58 14:56 16:10 Temperature 98.6 F Pulse Rate 83 81 77 Respiratory 18 20 20 Rate Blood Pressure 158/111 158/104 156/97 O2 Sat by Pulse 95 96 97 Oximetry Medical Decision Making - Medical Decision Making Was pt. sent in by a medical professional or institution ([facility], FACULTY SUPPORT COORDINATOR, urgent care, hospital, or [facility]...) When possible be specific @ -None Did you speak to anyone other than the patient for history (EMS, parent, family, police, friend...)? What history was obtained from this source @ -No Did you review nursing and triage notes (agree or disagree)? Why? @ -I reviewed and agree with nursing and triage notes Were old charts reviewed (outside hosp., previous admission, EMS record, old EKG, old radiological studies, urgent care reports/EKG's, [facility] records)? Report findings @ -No old charts were reviewed Differential Diagnosis (chest pain, altered mental status, abdominal pain women, abdominal pain men, vaginal bleeding, weakness, fever, dyspnea, syncope, headache, dizziness, GI bleed, back pain, seizure, CVA, palpatations, mental health, musculoskeletal)? @ -Migraine, subarachnoid hemorrhage, tension headache, hypertension, hypertensive urgency, hypertensive emergency, cellulitis, MRSA, this is not an exhaustive list EKG interpreted by me (3pts min.). @ -Not done X-rays interpreted by me (1pt min.). @ -None done CT interpreted by me (1pt min.). @ -None done U/S interpreted by me (1pt. min.). @ -None done What testing was considered but not performed or refused? (CT, X-rays, U/S, labs)? Why? @ -None What meds were considered but not given or refused? Why? @ -Patient declined IV magnesium for migraine. Did you discuss the management of the patient with other professionals (professionals i.e. [facility], FACULTY SUPPORT COORDINATOR, lab, RT, psych nurse, social media executive, element burner, teacher, chief safety officer, field nurse case manager)? Give summary @ -No Was smoking cessation discussed for >3mins.? @ -No Was critical care preformed (if so, how long)? @ -No Were there social determinants of health that impacted care today? How? (Homelessness, low income, unemployed, alcoholism, drug addiction, trans portation, low edu. Level, literacy, decrease access to med. care, long-term, rehab)? @ -No Was there de-escalation of care discussed even if they declined (Discuss DNR or withdrawal of care, Hospice)? DNR status @ -No What co-morbidities impacted this encounter? (DM, HTN, Smoking, COPD, CAD, Cancer, CVA, ARF, Chemo, Hep., AIDS, mental health diagnosis, sleep apnea, morbid obesity)? @ -None Was patient admitted / discharged? Hospital course, mention meds given and route, prescriptions, significant lab abnormalities, going to OR and other pertinent info. @ -Left rib wound check appeared to be healing well with no indication of infection. Patient declined treatment for migraine. Patient's blood pressure dropped without intervention to 156/97. Undiagnosed new problem with uncertain prognosis? @ -No Drug Therapy requiring intensive monitoring for toxicity (Heparin, Nitro, Insulin, Cardizem)? @ -No Were any procedures done? @ -No Diagnosis/symptom? @ -Migraine, hypertension, wound check Acute, or Chronic, or Acute on Chronic? @ -Acute Uncomplicated (without systemic symptoms) or Complicated (systemic symptoms)? @ -Uncomplicated Side effects of treatment? @ -No Exacerbation, Progression, or Severe Exacerbation? @ -No Poses a threat to life or bodily function? How? (Chest pain, [place], PR, pneumonia, PE, COPD, DKA, ARF, appy, cholecystitis, CVA, Diverticulitis, Homicidal, Suicidal, threat to staff... and all critical care pts) @ -No Disposition Clinical Impression: Hypertensive urgency, Migraine, Encounter for wound re-check Disposition: HOME SELF-CARE Condition: Good Instructions (If sedation given, give patient instructions): Migraine Headache (ED), Hypertension (ED) Is patient prescribed a controlled substance at d/c from ED?: No Referrals: Susana Chin MD [Primary Care Provider] - 1-2 days Time of Disposition: 15:09
[2024-08-03 16:11] VITALS: BP 156/97; PULSE 77
== END 2024-08-03 16:11 | disposition home or self-care (01) ==
LOC: EC 12:46
DX: I16.0 Hypertensive urgency (principal); G43.909 Migraine, unspecified, not intractable, without status migrainosus; Z48.00 Encounter for change or removal of nonsurgical wound dressing; Z87.891 Personal history of nicotine dependence; Z88.1 Allergy status to other antibiotic agents
CPT/HCPCS: 99283